=== PATIENT | female | born 1965 | race Two or more races ===

== ENCOUNTER 2018-11-24 10:59 | Emergency (ER) | payer MEDICARE, MEDICAID ==
[~2018-11-24] VITALS: Ht 154.9 cm; Wt 63.5 kg
[2018-11-24 11:38] LABS: Basophils # (auto) 0 uL; Basophils % (auto) 0.4 % (0.0-2.0); Eosinophils # (auto) 0 uL; Eosinophils % (auto) 0.3 % (0.0-7.0); Hematocrit 39.2 % (36.0-46.0); Hemoglobin 12.3 g/dL (12.2-16.2); Lymphocytes # (auto) 1.5 uL; Lymphocytes % (auto) 18.1 % (10.0-50.0); Mean Corpuscular Hemoglobin 30.5 pg (28.0-32.0); Mean Corpuscular Hgb Conc. 31.4 g/dL (32.0-36.0); Mean Corpuscular Volume 96.9 fL (80.0-100.0); Monocytes # (auto) 0.8 uL; Monocytes % (auto) 10.1 % (0.0-12.0); Neutrophils # (auto) 5.9 uL; Neutrophils % (auto) 71.1 % (37.0-80.0); Nucleated Red Blood Cells % 0.1 %; Platelet Count (auto) 190 10^3/uL (140-450); Red Blood Cells 4.05 10^6/uL (4.0-5.20); Red Cell Distribution Width 15.6 % (11.8-14.3); White Blood Cell 8.3 10^3/uL (4.4-10.8)
[2018-11-24 11:51] LABS: Albumin 3.5 g/dL (3.4-5.0); Calcium 7.6 mg/dL (8.5-10.1); Potassium 4.7 mmol/L (3.5-5.1)
[2018-11-24 11:53] LABS: BUN/Creatinine Ratio 4.9; Bilirubin, Total 1.1 mg/dL (0.2-1.0); Total Protein 7.2 g/dL (6.4-8.2)
[2018-11-24] MEDS ORDERED: ONDANSETRON HCL 4 MG/2 ML VIAL IV ONE (12:30)
[2018-11-24] MEDS ORDERED: ASPirin-EC 81 mg tab PO ONE (12:30)
[2018-11-24 15:00] VITALS: BP 156/82
== END 2018-11-24 15:45 | disposition left against medical advice (07) ==
LOC: EDBD 10:59 → ER 10:59
DX: I13.2 Hypertensive heart and chronic kidney disease with heart failure and with stage 5 chronic kidney disease, or end stage renal disease (principal); N18.6 End stage renal disease; I50.9 Heart failure, unspecified; R79.89 Other specified abnormal findings of blood chemistry; F17.210 Nicotine dependence, cigarettes, uncomplicated; Z99.2 Dependence on renal dialysis; Z88.2 Allergy status to sulfonamides; Z53.29 Procedure and treatment not carried out because of patient's decision for other reasons
CPT/HCPCS: 36415; 71045; 80053; 83735; 83880; 84484; 85025; 93005; 94761; 96374; 99284; J2405

== ENCOUNTER 2020-09-05 11:23 | Emergency (ER) | payer MEDICARE, MEDICAID ==
[~2020-09-05] VITALS: Ht 154.9 cm; Wt 64.9 kg
[2020-09-05] MEDS ORDERED: MORPHINE SULFATE INJECTION 2 MG/ML SYRG IV ONE (12:30)
[2020-09-05] MEDS ORDERED: ONDANSETRON HCL 4 MG/2 ML VIAL IV ONE (12:30)
[2020-09-05 12:55] LABS: Basophils # (auto) 0 10 ^3/uL (0-0.2); Basophils % (auto) 0.5 % (0.0-2.0); Eosinophils # (auto) 0.3 10 ^3/uL (0-0.8); Eosinophils % (auto) 4.4 % (0.0-7.0); Hematocrit 33.6 % (36.0-46.0); Hemoglobin 11.4 g/dL (12.2-16.2); Lymphocytes # (auto) 1.7 10 ^3/uL (0.4-5.4); Lymphocytes % (auto) 26.5 % (10.0-50.0); Mean Corpuscular Volume 85.3 fL (80.0-100.0); Monocytes # (auto) 0.5 10 ^3/uL (0-1.3); Monocytes % (auto) 8.3 % (0.0-12.0); Neutrophils % (auto) 60.3 % (37.0-80.0); Red Blood Cells 3.94 10^6/uL (4.0-5.20); Red Cell Distribution Width 13.7 % (11.8-14.3); White Blood Cell 6.6 10^3/uL (4.4-10.8)
[2020-09-05 13:00] LABS: Albumin 3.6 g/dL (3.4-5.0); Calcium 7.3 mg/dL (8.5-10.1); Magnesium 2.6 mg/dL (1.6-2.6); Potassium 3.6 mmol/L (3.5-5.1)
[2020-09-05 13:03] LABS: BUN/Creatinine Ratio 2.6; Bilirubin, Total 0.5 mg/dL (0.2-1.0); Total Protein 7.7 g/dL (6.4-8.2)
[2020-09-05] MEDS ORDERED: cloNIDine HCL 0.1 MG TAB PO ONE (14:30)
[2020-09-05 15:23] VITALS: BP 172/69
== END 2020-09-05 17:02 | disposition home or self-care (01) ==
LOC: ER 11:23
DX: M79.641 Pain in right hand (principal); I12.0 Hypertensive chronic kidney disease with stage 5 chronic kidney disease or end stage renal disease; N18.6 End stage renal disease; J45.909 Unspecified asthma, uncomplicated; Z99.2 Dependence on renal dialysis; F17.210 Nicotine dependence, cigarettes, uncomplicated; Z86.73 Personal history of transient ischemic attack (TIA), and cerebral infarction without residual deficits; Z88.2 Allergy status to sulfonamides
CPT/HCPCS: 36415; 73130; 80053; 83735; 84550; 85025; 85049; 85652; 93005; 93971; 96374; 96375; 99285; J2270; J2405

== ENCOUNTER 2022-10-21 16:01 | Inpatient (IN) | payer MEDICARE, MEDICAID ==
[~2022-10-21] VITALS: Ht 154.9 cm; Wt 82.0 kg
[2022-10-21 16:37] LABS: Basophils # (auto) 0.1 10 ^3/uL (0-0.2); Basophils % (auto) 1.4 % (0.0-2.0); Eosinophils # (auto) 0.4 10 ^3/uL (0-0.8); Hematocrit 33.2 % (36.0-46.0); Hemoglobin 10.6 g/dL (12.2-16.2); Lymphocytes # (auto) 0.8 10 ^3/uL (0.4-5.4); Lymphocytes % (auto) 10.8 % (10.0-50.0); Mean Corpuscular Hemoglobin 28.6 pg (28.0-32.0); Mean Corpuscular Hgb Conc. 31.9 g/dL (32.0-36.0); Mean Corpuscular Volume 89.4 fL (80.0-100.0); Monocytes # (auto) 0.5 10 ^3/uL (0-1.3); Monocytes % (auto) 7.5 % (0.0-12.0); Neutrophils # (auto) 5.3 10 ^3/uL (1.6-8.6); Neutrophils % (auto) 74.3 % (37.0-80.0); Nucleated Red Blood Cells % 0.2 %; Red Blood Cells 3.72 10^6/uL (4.0-5.20); Red Cell Distribution Width 16.5 % (11.8-14.3); White Blood Cell 7.1 10^3/uL (4.4-10.8)
[2022-10-21] MEDS ORDERED: ASPirin 325 MG TAB PO ONE (16:45)
[2022-10-21 16:54] LABS: Albumin 2.2 g/dL (3.4-5.0); Calcium 7.6 mg/dL (8.5-10.1); Potassium 3.6 mmol/L (3.5-5.1)
[2022-10-21 16:57] LABS: BUN/Creatinine Ratio 4.3 (10.0-20.0); Bilirubin, Total 0.8 mg/dL (0.2-1.0); Total Protein 5.9 g/dL (6.4-8.2)
[2022-10-21 17:04] LABS: INR 1.19 (0.9-1.15); Partial Thromboplastin Time 27.5 SEC (24.5-34.5); Prothrombin Time 12.4 sec (9.3-11.8)
[2022-10-21] MEDS ORDERED: FUROSEMIDE 20 MG/2 ML VIAL IV ONE (17:45)
[2022-10-21 17:59] VITALS: PULSE 130; RESP 22; O2SAT 100
[2022-10-21] MEDS ORDERED: ALBUTEROL SULF 2.5 MG/0.5ML(0.5%) NEB SOLN NEB PRN (19:00)
[2022-10-21] MEDS ORDERED: MORPHINE SULFATE INJ 2 MG/ml SYRG IV PRN (19:00)
[2022-10-21] MEDS ORDERED: NITROGLYCERIN 0.4 MG SL TAB SL PRN (19:00)
[2022-10-21] MEDS ORDERED: LOSA100T58 PO (19:05)
[2022-10-21] MEDS ORDERED: CARV25TA55 PO (19:05)
[2022-10-21] MEDS ORDERED: SODI325T PO (19:05)
[2022-10-21] MEDS ORDERED: FURO40TA4 PO (19:05)
[2022-10-21] MEDS ORDERED: ALBU108A5 PO (19:05)
[2022-10-21] MEDS ORDERED: GAB100C PO (19:05)
[2022-10-21] MEDS ORDERED: FLUT110A INH (19:05)
[2022-10-21] MEDS ORDERED: AMLO1TAB22 PO (19:05)
[2022-10-21] MEDS ORDERED: ATOR20TA50 PO (19:05)
[2022-10-21] MEDS ORDERED: LEVO50TA7 PO (19:05)
[2022-10-21] MEDS ORDERED: HYDR-3682 PO (19:05)
[2022-10-21 19:55] VITALS: PULSE 130; RESP 24; O2SAT 100
[2022-10-21 20:30] LABS: Cholesterol 78 mg/dL (< 200)
[2022-10-21 20:33] LABS: HDL Cholesterol 18 mg/dL (40-59); LDL Cholesterol 43 mg/dL (< 100); Triglycerides 143 mg/dL (< 150)
[2022-10-21] MEDS: ATORVASTATIN 20 MG TAB PO SCH (20:55)
[2022-10-21] MEDS: CARVEDILOL 12.5 MG TAB PO SCH (20:56)
[2022-10-21] MEDS: HEPARIN SODIUM (PORCINE) 5000 UNITS/ML 1ML VIAL SC SCH (20:59)
[2022-10-21] MEDS: METOPROLOL TARTRATE 1MG/1ML-5ML VIAL IV ONE (23:22)
[2022-10-22] VITALS (7 sets, daily range): BP systolic 115–121; BP diastolic 64–78; PULSE 110–126; RESP 16–20; TEMP 98.1–98.2; O2SAT 95–100
[2022-10-22] MEDS: METOPROLOL TARTRATE 1MG/1ML-5ML VIAL IV ONE (00:30)
[2022-10-22] MEDS: LEVOTHYROXINE SODIUM 50 MCG TAB PO SCH (06:52)
[2022-10-22 06:55] LABS: Basophils # (auto) 0 10 ^3/uL (0-0.2); Basophils % (auto) 0.6 % (0.0-2.0); Eosinophils # (auto) 0.5 10 ^3/uL (0-0.8); Eosinophils % (auto) 8.9 % (0.0-7.0); Hemoglobin 11.3 g/dL (12.2-16.2); Lymphocytes # (auto) 0.9 10 ^3/uL (0.4-5.4); Lymphocytes % (auto) 15.9 % (10.0-50.0); Mean Corpuscular Hemoglobin 28.9 pg (28.0-32.0); Mean Corpuscular Hgb Conc. 32.2 g/dL (32.0-36.0); Mean Corpuscular Volume 89.8 fL (80.0-100.0); Monocytes # (auto) 0.4 10 ^3/uL (0-1.3); Monocytes % (auto) 7.8 % (0.0-12.0); Neutrophils # (auto) 3.8 10 ^3/uL (1.6-8.6); Neutrophils % (auto) 66.8 % (37.0-80.0); Nucleated Red Blood Cells % 0.1 %; Red Cell Distribution Width 16.6 % (11.8-14.3); White Blood Cell 5.7 10^3/uL (4.4-10.8)
[2022-10-22 07:51] LABS: Potassium 3.9 mmol/L (3.5-5.1)
[2022-10-22 08:01] LABS: Albumin 2.1 g/dL (3.4-5.0); BUN/Creatinine Ratio 4.5 (10.0-20.0); Bilirubin, Total 0.6 mg/dL (0.2-1.0); Calcium 7.8 mg/dL (8.5-10.1); Total Protein 6.3 g/dL (6.4-8.2)
[2022-10-22] MEDS ORDERED: SODIUM CHL 0.9% 1000 ML BAG XX ONE (09:45)
[2022-10-22] MEDS ORDERED: METOPROLOL TARTRATE 25 MG TAB PO ONE (10:00)
[2022-10-22] MEDS ORDERED: MIDODRINE HCL 10 MG TAB PO ONE ×2 (10:00→13:30)
[2022-10-22] MEDS: GABAPENTIN 100 MG CAP PO SCH (10:27)
[2022-10-22] MEDS: amLODIPine BESYLATE 5 MG TAB PO SCH (10:27)
[2022-10-22 10:29] LABS: % Iron Saturation 55.4 % (15-50)
[2022-10-22] MEDS: CARVEDILOL 12.5 MG TAB PO SCH ×2 (10:29→22:21)
[2022-10-22] MEDS: HEPARIN SODIUM (PORCINE) 5000 UNITS/ML 1ML VIAL SC SCH ×2 (10:32→22:22)
[2022-10-22] MEDS: ASPirin 81 mg TAB PO SCH (10:33)
[2022-10-22 14:54] LABS: Body Fluid Polymorphonuclear 31 % (0-25); Body Fluid Red Blood Cells 135 CUMM (0-2000); Body Fluid White Blood Cells 50 CUMM (0-200)
[2022-10-22] MEDS: ALBUMIN 25% 100 ML IV SCH ×3 (15:00→17:07)
[2022-10-22] MEDS ORDERED: EPOETIN ALFA-EPBX 10,000 UNIT/1ML VIAL SC ONE (21:00)
[2022-10-22] MEDS: ATORVASTATIN 20 MG TAB PO SCH (22:21)
[2022-10-23] MEDS ORDERED: ALBUMIN 25% 100 ML IV ONE (05:15)
[2022-10-23] MEDS: LEVOTHYROXINE SODIUM 50 MCG TAB PO SCH (05:59)
[2022-10-23] MEDS ORDERED: SODIUM CHL 0.9% 1000 ML BAG XX ONE (07:00)
[2022-10-23 08:10] VITALS: O2SAT 100
[2022-10-23 09:00] VITALS: BP 121/71; PULSE 63; RESP 18; TEMP 97.3; O2SAT 99
[2022-10-23] MEDS: ASPirin 81 mg TAB PO SCH (09:33)
[2022-10-23] MEDS: CARVEDILOL 12.5 MG TAB PO SCH (09:39)
[2022-10-23] MEDS: amLODIPine BESYLATE 5 MG TAB PO SCH (09:40)
[2022-10-23 09:44] LABS: Hematocrit 32.1 % (36.0-46.0); Hemoglobin 10.3 g/dL (12.2-16.2)
[2022-10-23] MEDS: GABAPENTIN 100 MG CAP PO SCH (09:44)
[2022-10-23] MEDS: HEPARIN SODIUM (PORCINE) 5000 UNITS/ML 1ML VIAL SC SCH (09:52)
[2022-10-23 10:03] LABS: Potassium 3.8 mmol/L (3.5-5.1)
[2022-10-23 10:08] LABS: BUN/Creatinine Ratio 4.6 (10.0-20.0); Calcium 7.9 mg/dL (8.5-10.1)
[2022-10-23 10:10] LABS: % Iron Saturation 69.9 % (15-50)
[2022-10-23 12:19] LABS: Hepatitis A Ab IgM Negative; Hepatitis B Surface Antigen Negative (Negative)
[2022-10-23 12:20] LABS: Hepatitis B Core IgM Negative; Hepatitis C Antibody Negative (Negative)
[2022-10-23 12:51] LABS: Hepatitis B Surface Antigen Negative (Negative)
[2022-10-23 12:52] LABS: Hepatitis B Core IgM Negative
[2022-10-23 12:53] LABS: Hepatitis C Antibody Negative (Negative)
[2022-10-23 12:54] LABS: Hepatitis A Ab IgM Negative
[2022-10-23 13:00] VITALS: BP 90/47; PULSE 68; RESP 18; TEMP 97.8; O2SAT 100
[2022-10-23 14:06] LABS: Protein, Body Fluid 2.5 g/dL (.)
[2022-10-23 17:00] VITALS: BP 106/67; PULSE 123; RESP 19; TEMP 98.1; O2SAT 100
== END 2022-10-23 17:00 | disposition home or self-care (01) | DRG 302 ==
LOC: ER 16:01 → TELE 19:03 → TELE-WESTW 10-22 21:43
PROVIDERS: ADMIT Family Medicine; ATTEND Family Medicine
PROC: 0W9G3ZZ Drainage of Peritoneal Cavity, Percutaneous Approach (ICD-10-PCS; 2022-10-22)
PROC: 5A1D70Z Performance of Urinary Filtration, Intermittent, Less than 6 Hours Per Day (ICD-10-PCS; principal; 2022-10-23)
DX: I25.10 Atherosclerotic heart disease of native coronary artery without angina pectoris (principal); E43 Unspecified severe protein-calorie malnutrition; N18.6 End stage renal disease; I24.9 Acute ischemic heart disease, unspecified; R18.8 Other ascites; I13.2 Hypertensive heart and chronic kidney disease with heart failure and with stage 5 chronic kidney disease, or end stage renal disease; I48.92 Unspecified atrial flutter; I50.9 Heart failure, unspecified; E88.09 Other disorders of plasma-protein metabolism, not elsewhere classified; E66.01 Morbid (severe) obesity due to excess calories; I27.20 Pulmonary hypertension, unspecified; K74.60 Unspecified cirrhosis of liver; E78.5 Hyperlipidemia, unspecified; F17.210 Nicotine dependence, cigarettes, uncomplicated; I48.91 Unspecified atrial fibrillation; J44.9 Chronic obstructive pulmonary disease, unspecified; M06.9 Rheumatoid arthritis, unspecified; Z68.25 Body mass index [BMI] 25.0-25.9, adult; Z83.3 Family history of diabetes mellitus; Z82.49 Family history of ischemic heart disease and other diseases of the circulatory system; Z99.2 Dependence on renal dialysis; Z88.2 Allergy status to sulfonamides
CPT/HCPCS: 36415; 71045; 76700; 76942; 80048; 80053; 80061; 80074; 82728; 83540; 83550; 83605; 83880; 83986; 84443; 84484; 85014; 85018; 85025; 85379; 85610; 85730; 87040; 87205; 89051; 90935; 93005; 93306; G0378; J1642; P9047

== ENCOUNTER 2022-11-04 09:35 | Inpatient (IN) | payer MEDICARE, MEDICAID ==
[2022-11-04] VITALS (27 sets, daily range): BP systolic 81–107; BP diastolic 51–69; PULSE 139–159; RESP 18–24; TEMP 98.4–99.4; O2SAT 96–100
[~2022-11-04] VITALS: Ht 154.9 cm; Wt 80.4 kg
[~2022-11-04 09:35] MED LIST: ALBU108A5 PO; AMLO1TAB22 PO; ATOR20TA50 PO; CARV25TA55 PO; FLUT110A INH; FURO40TA4 PO; GAB100C PO; HYDR-3682 PO; LEVO50TA7 PO; LOSA100T58 PO; SODI325T PO
[2022-11-04 09:55] LABS: Base Excess 0.6 mmol/L (-2.0-2.0)
[2022-11-04] MEDS ORDERED: PIPERACILLIN-TAZO 4.5GM 100 ML IV ONE (10:00)
[2022-11-04] MEDS ORDERED: NOREPINEPHRINE 8 MG/250ML KIT 250 ML IV SCH (10:00)
[2022-11-04] MEDS ORDERED: SODIUM CHLORIDE 0.9% 1,000 ML IV ONE (10:00)
[2022-11-04 10:49] LABS: Basophils # (auto) 0.1 10 ^3/uL (0-0.2); Basophils % (auto) 0.6 % (0.0-2.0); Eosinophils # (auto) 0.1 10 ^3/uL (0-0.8); Eosinophils % (auto) 0.8 % (0.0-7.0); Hematocrit 31.5 % (36.0-46.0); Hemoglobin 10.3 g/dL (12.2-16.2); Lymphocytes # (auto) 0.9 10 ^3/uL (0.4-5.4); Lymphocytes % (auto) 8.2 % (10.0-50.0); Mean Corpuscular Hemoglobin 28.9 pg (28.0-32.0); Mean Corpuscular Hgb Conc. 32.6 g/dL (32.0-36.0); Mean Corpuscular Volume 88.5 fL (80.0-100.0); Monocytes # (auto) 0.6 10 ^3/uL (0-1.3); Monocytes % (auto) 5.5 % (0.0-12.0); Neutrophils # (auto) 8.8 10 ^3/uL (1.6-8.6); Neutrophils % (auto) 84.9 % (37.0-80.0); Red Blood Cells 3.56 10^6/uL (4.0-5.20); Red Cell Distribution Width 17.6 % (11.8-14.3); White Blood Cell 10.3 10^3/uL (4.4-10.8)
[2022-11-04 11:30] LABS: INR 1.46 (0.9-1.15)
[2022-11-04] MEDS ORDERED: VANCOMYCIN 1GM/250ML 250 ML IV ONE (11:30)
[2022-11-04] MEDS ORDERED: FUROSEMIDE 40 MG/4 ML VIAL IV ONE (11:30)
[2022-11-04] MEDS ORDERED: ALBUMIN 5% 250 ML IV ONE (11:45)
[2022-11-04 11:52] LABS: Calcium 7.4 mg/dL (8.7-10.4); Potassium 4.3 mmol/L (3.5-5.1)
[2022-11-04 11:58] LABS: Albumin 1.8 g/dL (3.4-5.0); BUN/Creatinine Ratio 6.3 (10.0-20.0); Total Protein 5.1 g/dL (6.4-8.2)
[2022-11-04 12:41] LABS: Lactic Acid w/Reflex 3.1 mmol/L (0.4-2.0)
[2022-11-04] MEDS ORDERED: VANCOMYCIN PER PHARMACY 0 MG IV SCH (14:15)
[2022-11-04] MEDS: PHENYLEPHRINE IV 250 ML IV SCH (14:15)
[2022-11-04] MEDS ORDERED: NITROGLYCERIN 0.4 MG SL TAB SL PRN (14:15)
[2022-11-04] MEDS ORDERED: ALBUTEROL SULF 2.5 MG/0.5ML(0.5%) NEB SOLN NEB PRN (14:15)
[2022-11-04] MEDS ORDERED: MORPHINE SULFATE INJ 2 MG/ml SYRG IV PRN (14:15)
[2022-11-04] MEDS: PIPERACILLIN-TAZOB 2.25GM 50 ML IV SCH (15:00)
[2022-11-04] MEDS ORDERED: VASOPRESSIN 20 UNITS in SODIUM CHL 0.9% 99 ML IV SCH (16:15)
[2022-11-04] MEDS: VASOPRESSIN 20 UNITS in SODIUM CHL 0.9% 99 ML IV SCH (16:30)
[2022-11-04] MEDS: PHENYLEPHRINE INJ 80 MG in SODIUM CHL 0.9% 242 ML IV SCH (16:30)
[2022-11-04] MEDS ORDERED: ADENOSINE 6 MG/2 ML INJ IV ONE (17:45)
[2022-11-04 19:00] LABS: Lactic Acid w/Reflex 2.6 mmol/L (0.4-2.0)
[2022-11-04] MEDS: ALBUMIN 25% 100 ML IV SCH ×3 (20:16→23:13)
[2022-11-04] MEDS ORDERED: EPOETIN ALFA-EPBX 4,000 UNIT/ML VIAL SC ONE (21:00)
[2022-11-04] MEDS: ATORVASTATIN 20 MG TAB PO SCH (22:00)
[2022-11-04] MEDS: NOREPINEPHRINE BITARTRATE 32 MG in SODIUM CHL 0.9% 218 ML IV SCH (23:03)
[2022-11-04] MEDS: HEPARIN SODIUM (PORCINE) 5000 UNITS/ML 1ML VIAL SC SCH (23:32)
[2022-11-04] MEDS ORDERED: dilTIAZem 25 MG/5 ML VIAL IV ONE (23:45)
[2022-11-05] VITALS (97 sets, daily range): BP systolic 81–113; BP diastolic 54–76; PULSE 104–158; RESP 19–33; TEMP 97.8–101.6; O2SAT 97–100
[2022-11-05 00:54] LABS: Lactic Acid w/Reflex 3.5 mmol/L (0.4-2.0)
[2022-11-05] MEDS: VASOPRESSIN 20 UNITS in SODIUM CHL 0.9% 99 ML IV SCH ×2 (02:22→14:44)
[2022-11-05] MEDS: PIPERACILLIN-TAZOB 2.25GM 50 ML IV SCH ×2 (02:22→15:00)
[2022-11-05] MEDS: PHENYLEPHRINE INJ 80 MG in SODIUM CHL 0.9% 242 ML IV SCH ×3 (02:56→19:30)
[2022-11-05 04:55] LABS: Basophils # (auto) 0 10 ^3/uL (0-0.2); Basophils % (auto) 0.4 % (0.0-2.0); Eosinophils # (auto) 0.1 10 ^3/uL (0-0.8); Eosinophils % (auto) 0.9 % (0.0-7.0); Hematocrit 32.6 % (36.0-46.0); Hemoglobin 10.3 g/dL (12.2-16.2); Lymphocytes % (auto) 7.9 % (10.0-50.0); Mean Corpuscular Hgb Conc. 31.6 g/dL (32.0-36.0); Mean Corpuscular Volume 88.5 fL (80.0-100.0); Monocytes # (auto) 0.8 10 ^3/uL (0-1.3); Monocytes % (auto) 6.7 % (0.0-12.0); Neutrophils # (auto) 10.6 10 ^3/uL (1.6-8.6); Neutrophils % (auto) 84.1 % (37.0-80.0); Nucleated Red Blood Cells % 0.1 %; Red Blood Cells 3.68 10^6/uL (4.0-5.20); Red Cell Distribution Width 17.2 % (11.8-14.3); White Blood Cell 12.6 10^3/uL (4.4-10.8)
[2022-11-05 05:45] LABS: Lactic Acid w/Reflex 3.5 mmol/L (0.4-2.0)
[2022-11-05 06:17] LABS: Alanine Aminotransferase 23 U/L (7-40); Albumin 2.8 g/dL (3.2-4.8); Alkaline Phosphatase 174 U/L (46-116); Aspartate Aminotransferase 72 U/L (13-40); BUN/Creatinine Ratio 5.9 (10.0-20.0); Blood Urea Nitrogen 48 mg/dL (9-23); Calcium 7.9 mg/dL (8.7-10.4); Chloride 99 mmol/L (98-107); Glucose 119 mg/dL (74-106); Potassium 4.9 mmol/L (3.5-5.1); Sodium 137 mmol/L (136-145)
[2022-11-05] MEDS: LEVOTHYROXINE SODIUM 50 MCG TAB PO SCH (06:17)
[2022-11-05 06:18] LABS: Bilirubin, Total 2.4 mg/dL (0.2-1.0); Total Protein 5.6 g/dL (5.7-8.2)
[2022-11-05] MEDS ORDERED: ALBUMIN 25% 100 ML IV ONE ×3 (10:45→14:30)
[2022-11-05] MEDS: HEPARIN SODIUM (PORCINE) 5000 UNITS/ML 1ML VIAL SC SCH ×2 (11:27→21:55)
[2022-11-05] MEDS: GABAPENTIN 100 MG CAP PO SCH (11:28)
[2022-11-05 13:57] LABS: Lactic Acid w/Reflex 3.9 mmol/L (0.4-2.0)
[2022-11-05] MEDS ORDERED: DIGOXIN (250MCG/ML) 2 ML AMPULE IV ONE (18:30)
[2022-11-05] MEDS: NOREPINEPHRINE BITARTRATE 32 MG in SODIUM CHL 0.9% 218 ML IV SCH (19:31)
[2022-11-05] MEDS ORDERED: VANCOMYCIN 1GM/250ML 250 ML IV ONE (20:00)
[2022-11-05] MEDS ORDERED: AMIODARONE 450mg/250ml AE 250 ML IV SCH (21:00)
[2022-11-05] MEDS ORDERED: AMIODARONE BOLUS KIT 100 ML IV ONE (21:00)
[2022-11-05] MEDS ORDERED: EPOETIN ALFA-EPBX 4,000 UNIT/ML VIAL SC ONE (21:00)
[2022-11-05] MEDS: ATORVASTATIN 20 MG TAB PO SCH (21:53)
[2022-11-05] MEDS: ACETAMINOPHEN 325 MG TAB PO PRN (22:51)
[2022-11-06] VITALS (95 sets, daily range): BP systolic 78–108; BP diastolic 51–78; PULSE 113–149; RESP 16–29; TEMP 96.3–99.9; O2SAT 89–100
[2022-11-06] MEDS: VASOPRESSIN 20 UNITS in SODIUM CHL 0.9% 99 ML IV SCH ×2 (01:51→12:58)
[2022-11-06] MEDS: PIPERACILLIN-TAZOB 2.25GM 50 ML IV SCH ×2 (02:50→14:35)
[2022-11-06] MEDS: PHENYLEPHRINE INJ 80 MG in SODIUM CHL 0.9% 242 ML IV SCH ×2 (02:52→10:15)
[2022-11-06] MEDS: AMIODARONE 450mg/250ml AE 250 ML IV SCH ×2 (02:52→17:44)
[2022-11-06 04:29] LABS: Basophils # (auto) 0 10 ^3/uL (0-0.2); Basophils % (auto) 0.2 % (0.0-2.0); Eosinophils # (auto) 0.3 10 ^3/uL (0-0.8); Eosinophils % (auto) 1.6 % (0.0-7.0); Hematocrit 33.1 % (36.0-46.0); Hemoglobin 10.4 g/dL (12.2-16.2); Lymphocytes # (auto) 1.7 10 ^3/uL (0.4-5.4); Lymphocytes % (auto) 10.5 % (10.0-50.0); Mean Corpuscular Hemoglobin 28.1 pg (28.0-32.0); Mean Corpuscular Hgb Conc. 31.3 g/dL (32.0-36.0); Mean Corpuscular Volume 89.8 fL (80.0-100.0); Monocytes % (auto) 6.2 % (0.0-12.0); Neutrophils # (auto) 13.3 10 ^3/uL (1.6-8.6); Neutrophils % (auto) 81.5 % (37.0-80.0); Nucleated Red Blood Cells % 0.1 %; Red Blood Cells 3.68 10^6/uL (4.0-5.20); Red Cell Distribution Width 17.2 % (11.8-14.3); White Blood Cell 16.3 10^3/uL (4.4-10.8)
[2022-11-06 05:02] LABS: Alanine Aminotransferase 48 U/L (7-40); Albumin 3.2 g/dL (3.2-4.8); Alkaline Phosphatase 147 U/L (46-116); Aspartate Aminotransferase 129 U/L (13-40); BUN/Creatinine Ratio 6.5 (10.0-20.0); Bilirubin, Total 3.8 mg/dL (0.2-1.0); Blood Urea Nitrogen 39 mg/dL (9-23); Calcium 8.3 mg/dL (8.7-10.4); Chloride 97 mmol/L (98-107); Glucose 137 mg/dL (74-106); Potassium 4.7 mmol/L (3.5-5.1); Sodium 134 mmol/L (136-145); Total Protein 5.6 g/dL (5.7-8.2)
[2022-11-06] MEDS: LEVOTHYROXINE SODIUM 50 MCG TAB PO SCH (06:16)
[2022-11-06] MEDS ORDERED: BUMETANIDE 2.5mg/10ml (0.25 mg/ml) INJ IV ONE (07:45)
[2022-11-06 09:44] LABS: Hepatitis B Surface Antigen Negative (Negative)
[2022-11-06 10:05] LABS: Hepatitis A Ab IgM Negative
[2022-11-06 10:06] LABS: Hepatitis B Core IgM Negative; Hepatitis C Antibody Negative (Negative)
[2022-11-06] MEDS: GABAPENTIN 100 MG CAP PO SCH ×2 (10:15→10:29)
[2022-11-06] MEDS: HEPARIN SODIUM (PORCINE) 5000 UNITS/ML 1ML VIAL SC SCH ×2 (10:16→21:38)
[2022-11-06] MEDS: NOREPINEPHRINE BITARTRATE 32 MG in SODIUM CHL 0.9% 218 ML IV SCH (10:29)
[2022-11-06] MEDS: BUMETANIDE 2.5mg/10ml (0.25 mg/ml) INJ IV SCH (17:42)
[2022-11-06] MEDS: PHENYLEPHRINE IV 250 ML IV SCH (17:43)
[2022-11-06] MEDS: ATORVASTATIN 20 MG TAB PO SCH (21:36)
[2022-11-06] MEDS: CEFEPIME 1GM/ 50ML 50 ML IV SCH (21:36)
[2022-11-06] MEDS ORDERED: CEFEPIME 2GM/50ML NS 50 ML IV SCH (22:00)
[2022-11-07] VITALS (101 sets, daily range): BP systolic 85–137; BP diastolic 31–118; PULSE 59–121; RESP 14–30; TEMP 96.5–98.7; O2SAT 87–100
[2022-11-07] MEDS: VASOPRESSIN 20 UNITS in SODIUM CHL 0.9% 99 ML IV SCH ×3 (00:05→20:59)
[2022-11-07] MEDS: NOREPINEPHRINE BITARTRATE 32 MG in SODIUM CHL 0.9% 218 ML IV SCH ×2 (01:08→18:57)
[2022-11-07] MEDS: PHENYLEPHRINE INJ 80 MG in SODIUM CHL 0.9% 242 ML IV SCH ×4 (01:10→21:50)
[2022-11-07 04:37] LABS: Alanine Aminotransferase 184 U/L (7-40); Albumin 2.9 g/dL (3.2-4.8); Alkaline Phosphatase 139 U/L (46-116); Anion Gap 15.5 (5-15); Aspartate Aminotransferase 661 U/L (13-40); BUN/Creatinine Ratio 7.8 (10.0-20.0); Bilirubin, Total 4.8 mg/dL (0.2-1.0); Blood Urea Nitrogen 48 mg/dL (9-23); Calcium 8.5 mg/dL (8.7-10.4); Carbon Dioxide 19.5 mmol/L (20-30); Chloride 98 mmol/L (98-107); Glucose 101 mg/dL (74-106); Potassium 4.9 mmol/L (3.5-5.1); Sodium 133 mmol/L (136-145); Total Protein 5.4 g/dL (5.7-8.2)
[2022-11-07 04:42] LABS: Basophils # (auto) 0 10 ^3/uL (0-0.2); Basophils % (auto) 0.3 % (0.0-2.0); Eosinophils # (auto) 0.4 10 ^3/uL (0-0.8); Eosinophils % (auto) 2.5 % (0.0-7.0); Hematocrit 32.1 % (36.0-46.0); Hemoglobin 10.2 g/dL (12.2-16.2); Lymphocytes # (auto) 1.5 10 ^3/uL (0.4-5.4); Lymphocytes % (auto) 9.1 % (10.0-50.0); Mean Corpuscular Hemoglobin 28.4 pg (28.0-32.0); Mean Corpuscular Hgb Conc. 31.7 g/dL (32.0-36.0); Mean Corpuscular Volume 89.6 fL (80.0-100.0); Monocytes % (auto) 6.5 % (0.0-12.0); Neutrophils # (auto) 13.1 10 ^3/uL (1.6-8.6); Neutrophils % (auto) 81.6 % (37.0-80.0); Nucleated Red Blood Cells % 0.1 %; Red Blood Cells 3.59 10^6/uL (4.0-5.20); Red Cell Distribution Width 17.2 % (11.8-14.3); White Blood Cell 16.1 10^3/uL (4.4-10.8)
[2022-11-07] MEDS: BUMETANIDE 2.5mg/10ml (0.25 mg/ml) INJ IV SCH ×2 (05:57→17:43)
[2022-11-07] MEDS: LEVOTHYROXINE SODIUM 50 MCG TAB PO SCH (06:00)
[2022-11-07] MEDS: ALBUMIN 25% 100 ML IV PRN (09:00)
[2022-11-07] MEDS ORDERED: ALBUMIN 25% 100 ML IV PRN (09:45)
[2022-11-07] MEDS ORDERED: ALBUMIN 25% 200 ML IV ONE (09:51)
[2022-11-07] MEDS: AMIODARONE 450mg/250ml AE 250 ML IV SCH (11:51)
[2022-11-07] MEDS ORDERED: levoFLOXacin 250MG 50 ML IV ONE (12:15)
[2022-11-07] MEDS ORDERED: B-COMPLEX W/ C & FOLIC ACID(NEPHROVITE TAB) PO ONE (12:30)
[2022-11-07] MEDS: GABAPENTIN 100 MG CAP PO SCH (14:40)
[2022-11-07] MEDS: HEPARIN SODIUM (PORCINE) 5000 UNITS/ML 1ML VIAL SC SCH ×2 (14:42→21:10)
[2022-11-07] MEDS ORDERED: IOHEXOL 300 MG/ML 100ML BOTTLE IJ ONE (15:08)
[2022-11-07 15:33] LABS: Magnesium 2.1 mg/dL (1.6-2.6)
[2022-11-07] MEDS ORDERED: VANCOMYCIN 1GM/250ML 250 ML IV ONE (16:00)
[2022-11-07] MEDS ORDERED: AMIODARONE HCL 200 MG TAB PO ONE (17:30)
[2022-11-07] MEDS: Nepro With Carbsteady ButterPecan 8oz Carton PO SCH (17:50)
[2022-11-07] MEDS ORDERED: EPOETIN ALFA-EPBX 4,000 UNIT/ML VIAL SC ONE (21:00)
[2022-11-07] MEDS: ATORVASTATIN 20 MG TAB PO SCH (21:10)
[2022-11-07] MEDS: CEFEPIME 1GM/ 50ML 50 ML IV SCH (21:10)
[2022-11-08] VITALS (106 sets, daily range): BP systolic 91–135; BP diastolic 47–82; PULSE 63–76; RESP 15–30; TEMP 97.2–98.8; O2SAT 84–100
[2022-11-08 04:53] LABS: Basophils # (auto) 0.1 10 ^3/uL (0-0.2); Basophils % (auto) 0.4 % (0.0-2.0); Eosinophils # (auto) 0.6 10 ^3/uL (0-0.8); Eosinophils % (auto) 4.2 % (0.0-7.0); Hematocrit 29.3 % (36.0-46.0); Hemoglobin 9.4 g/dL (12.2-16.2); Lymphocytes # (auto) 1.2 10 ^3/uL (0.4-5.4); Lymphocytes % (auto) 8.1 % (10.0-50.0); Mean Corpuscular Hemoglobin 28.4 pg (28.0-32.0); Mean Corpuscular Hgb Conc. 32.2 g/dL (32.0-36.0); Monocytes % (auto) 6.7 % (0.0-12.0); Neutrophils # (auto) 12.3 10 ^3/uL (1.6-8.6); Neutrophils % (auto) 80.6 % (37.0-80.0); Nucleated Red Blood Cells % 0.4 %; Red Blood Cells 3.33 10^6/uL (4.0-5.20); Red Cell Distribution Width 17.4 % (11.8-14.3); White Blood Cell 15.2 10^3/uL (4.4-10.8)
[2022-11-08 05:12] LABS: Alanine Aminotransferase 190 U/L (7-40); Albumin 3.1 g/dL (3.2-4.8); Alkaline Phosphatase 204 U/L (46-116); Anion Gap 12.3 (5-15); Aspartate Aminotransferase 521 U/L (13-40); BUN/Creatinine Ratio 7.5 (10.0-20.0); Calcium 8.6 mg/dL (8.7-10.4); Carbon Dioxide 22.7 mmol/L (20-30); Chloride 99 mmol/L (98-107); Glucose 150 mg/dL (74-106); Sodium 134 mmol/L (136-145)
[2022-11-08 05:13] LABS: Bilirubin, Total 4.4 mg/dL (0.2-1.0); Total Protein 5.6 g/dL (5.7-8.2)
[2022-11-08] MEDS: BUMETANIDE 2.5mg/10ml (0.25 mg/ml) INJ IV SCH ×2 (05:50→17:26)
[2022-11-08] MEDS: LEVOTHYROXINE SODIUM 50 MCG TAB PO SCH (06:01)
[2022-11-08 06:23] LABS: Blood Urea Nitrogen 38 mg/dL (9-23)
[2022-11-08] MEDS: PHENYLEPHRINE INJ 80 MG in SODIUM CHL 0.9% 242 ML IV SCH ×3 (06:25→22:45)
[2022-11-08] MEDS: B-COMPLEX W/ C & FOLIC ACID(NEPHROVITE TAB) PO SCH ×2 (08:45→12:10)
[2022-11-08] MEDS: VASOPRESSIN 20 UNITS in SODIUM CHL 0.9% 99 ML IV SCH ×2 (09:26→20:33)
[2022-11-08] MEDS ORDERED: levoFLOXacin 250MG 50 ML IV SCH (10:00)
[2022-11-08] MEDS: Nepro With Carbsteady ButterPecan 8oz Carton PO SCH ×3 (10:05→18:21)
[2022-11-08] MEDS: GABAPENTIN 100 MG CAP PO SCH (12:09)
[2022-11-08] MEDS: levoFLOXacin 500MG 100 ML IV SCH (12:10)
[2022-11-08] MEDS: AMIODARONE HCL 200 MG TAB PO SCH ×2 (12:10→21:50)
[2022-11-08] MEDS: HEPARIN SODIUM (PORCINE) 5000 UNITS/ML 1ML VIAL SC SCH ×2 (12:20→22:09)
[2022-11-08] MEDS: NOREPINEPHRINE BITARTRATE 32 MG in SODIUM CHL 0.9% 218 ML IV SCH (15:56)
[2022-11-08] MEDS: CEFEPIME 1GM/ 50ML 50 ML IV SCH (21:50)
[2022-11-08] MEDS: ATORVASTATIN 20 MG TAB PO SCH (21:50)
[2022-11-09] VITALS (109 sets, daily range): BP systolic 90–123; BP diastolic 45–73; PULSE 55–74; RESP 13–27; TEMP 97.8–99; O2SAT 88–100
[2022-11-09] MEDS ORDERED: VANCOMYCIN HCL 1000 MG VL IR ONE ×2 (05:00)
[2022-11-09] MEDS: LEVOTHYROXINE SODIUM 50 MCG TAB PO SCH (06:31)
[2022-11-09] MEDS: BUMETANIDE 2.5mg/10ml (0.25 mg/ml) INJ IV SCH ×2 (06:31→18:08)
[2022-11-09] MEDS: VASOPRESSIN 20 UNITS in SODIUM CHL 0.9% 99 ML IV SCH ×2 (07:40→18:09)
[2022-11-09 08:37] LABS: Anion Gap 9.8 (5-15); Carbon Dioxide 25.2 mmol/L (20-30); Chloride 100 mmol/L (98-107); Sodium 135 mmol/L (136-145)
[2022-11-09 08:38] LABS: Calcium 8.8 mg/dL (8.5-10.1)
[2022-11-09 08:43] LABS: Blood Urea Nitrogen 38 mg/dL (9-23); Glucose 119 mg/dL (74-106)
[2022-11-09 08:50] LABS: Hemoglobin 9.6 g/dL (12.2-16.2); Mean Corpuscular Hemoglobin 28.1 pg (28.0-32.0); Mean Corpuscular Hgb Conc. 31.9 g/dL (32.0-36.0); Red Blood Cells 3.41 10^6/uL (4.0-5.20)
[2022-11-09 08:56] LABS: Basophils % (manual) 0 (0.0-2.0); Blast Cells 0; Metamyelocytes % 0; Myelocytes % 0; Promyelocytes % 0; Reactive Lymphocytes 0
[2022-11-09] MEDS: PHENYLEPHRINE INJ 80 MG in SODIUM CHL 0.9% 242 ML IV SCH (09:12)
[2022-11-09] MEDS: Nepro With Carbsteady ButterPecan 8oz Carton PO SCH ×3 (09:12→18:09)
[2022-11-09] MEDS ORDERED: CLINDAMYCIN 300MG IV 50 ML IV ONE (09:15)
[2022-11-09 09:54] LABS: Band Neutrophils % (manual) 2; Eosinophils % (manual) 3 (0-7); Lymphocytes % (manual) 14 (10.0-50.0); Monocytes % (manual) 6 (0-12)
[2022-11-09 09:56] LABS: Platelet Estimate Decreased
[2022-11-09] MEDS: AMIODARONE HCL 200 MG TAB PO SCH ×2 (10:07→21:35)
[2022-11-09] MEDS: B-COMPLEX W/ C & FOLIC ACID(NEPHROVITE TAB) PO SCH (10:07)
[2022-11-09] MEDS: GABAPENTIN 100 MG CAP PO SCH (10:07)
[2022-11-09] MEDS: HEPARIN SODIUM (PORCINE) 5000 UNITS/ML 1ML VIAL SC SCH ×2 (10:11→21:36)
[2022-11-09] MEDS: NOREPINEPHRINE BITARTRATE 32 MG in SODIUM CHL 0.9% 218 ML IV SCH (14:18)
[2022-11-09] MEDS: CEFEPIME 1GM/ 50ML 50 ML IV SCH (21:35)
[2022-11-09] MEDS: ATORVASTATIN 20 MG TAB PO SCH (21:35)
[2022-11-10] VITALS (101 sets, daily range): BP systolic 71–124; BP diastolic 33–66; PULSE 52–66; RESP 11–24; TEMP 97.9–99.1; O2SAT 92–100
[2022-11-10 03:59] LABS: Hematocrit 30.4 % (36.0-46.0); Hemoglobin 9.7 g/dL (12.2-16.2); Mean Corpuscular Hemoglobin 28.3 pg (28.0-32.0); Mean Corpuscular Hgb Conc. 31.9 g/dL (32.0-36.0); Mean Corpuscular Volume 88.7 fL (80.0-100.0); Red Blood Cells 3.42 10^6/uL (4.0-5.20); Red Cell Distribution Width 17.2 % (11.8-14.3); White Blood Cell 17.4 10^3/uL (4.4-10.8)
[2022-11-10 04:13] LABS: Anion Gap 7.4 (5-15); Carbon Dioxide 27.6 mmol/L (20-30); Chloride 99 mmol/L (98-107); Potassium 3.8 mmol/L (3.5-5.1); Sodium 134 mmol/L (136-145)
[2022-11-10 04:19] LABS: BUN/Creatinine Ratio 8.4 (10.0-20.0); Blood Urea Nitrogen 43 mg/dL (9-23); Glucose 140 mg/dL (74-106)
[2022-11-10 04:27] LABS: Band Neutrophils % (manual) 0; Basophils % (manual) 0 (0.0-2.0); Blast Cells 0; Metamyelocytes % 0; Promyelocytes % 0; Reactive Lymphocytes 0
[2022-11-10] MEDS: VASOPRESSIN 20 UNITS in SODIUM CHL 0.9% 99 ML IV SCH ×2 (05:54→17:37)
[2022-11-10] MEDS: LEVOTHYROXINE SODIUM 50 MCG TAB PO SCH (06:18)
[2022-11-10] MEDS: BUMETANIDE 2.5mg/10ml (0.25 mg/ml) INJ IV SCH ×2 (06:21→18:00)
[2022-11-10] MEDS ORDERED: SODIUM CHL 0.9% 1000 ML BAG XX ONE (07:00)
[2022-11-10 09:01] LABS: Eosinophils % (manual) 4 (0-7); Lymphocytes % (manual) 9 (10.0-50.0); Monocytes % (manual) 5 (0-12); Myelocytes % 8; Platelet Estimate Decreased
[2022-11-10] MEDS: GABAPENTIN 100 MG CAP PO SCH (09:30)
[2022-11-10] MEDS: B-COMPLEX W/ C & FOLIC ACID(NEPHROVITE TAB) PO SCH (09:30)
[2022-11-10] MEDS: AMIODARONE HCL 200 MG TAB PO SCH ×2 (09:30→22:00)
[2022-11-10] MEDS: levoFLOXacin 500MG 100 ML IV SCH (09:30)
[2022-11-10] MEDS: Nepro With Carbsteady ButterPecan 8oz Carton PO SCH ×3 (09:32→18:00)
[2022-11-10] MEDS: HEPARIN SODIUM (PORCINE) 5000 UNITS/ML 1ML VIAL SC SCH ×2 (10:00→22:04)
[2022-11-10] MEDS: NOREPINEPHRINE BITARTRATE 32 MG in SODIUM CHL 0.9% 218 ML IV SCH (12:43)
[2022-11-10] MEDS ORDERED: VANCOMYCIN 1GM/250ML 250 ML IV ONE (13:38)
[2022-11-10] MEDS ORDERED: CLINDAMYCIN 300MG IV 50 ML IV ONE (13:41)
[2022-11-10] MEDS ORDERED: ceFAZolin 1GM/50ML 50 ML IV ONE (15:00)
[2022-11-10] MEDS: PHENYLEPHRINE INJ 80 MG in SODIUM CHL 0.9% 242 ML IV SCH ×2 (16:30→22:00)
[2022-11-10 17:32] LABS: INR 1.31 (0.9-1.15); Prothrombin Time 13.5 sec (9.3-11.8)
[2022-11-10] MEDS: DOPamine 3200MCG/ML 250 ML IV SCH (18:15)
[2022-11-10] MEDS: EPINEPHrine HCL INJECTION 16 MG in D5W 5% 234 ML IV SCH (18:15)
[2022-11-10] MEDS: ATORVASTATIN 20 MG TAB PO SCH (22:00)
[2022-11-11] VITALS (87 sets, daily range): BP systolic 79–164; BP diastolic 45–83; PULSE 52–67; RESP 11–27; TEMP 97.4–99.1; O2SAT 79–100
[2022-11-11] MEDS: VASOPRESSIN 20 UNITS in SODIUM CHL 0.9% 99 ML IV SCH ×2 (04:08→15:15)
[2022-11-11 04:33] LABS: Alanine Aminotransferase 84 U/L (7-40); Albumin 2.8 g/dL (3.2-4.8); Alkaline Phosphatase 348 U/L (46-116); Anion Gap 9.1 (5-15); Aspartate Aminotransferase 142 U/L (13-40); BUN/Creatinine Ratio 8.8 (10.0-20.0); Blood Urea Nitrogen 50 mg/dL (9-23); Calcium 8.7 mg/dL (8.7-10.4); Carbon Dioxide 24.9 mmol/L (20-30); Chloride 100 mmol/L (98-107); Glucose 109 mg/dL (74-106); Potassium 4.6 mmol/L (3.5-5.1); Sodium 134 mmol/L (136-145)
[2022-11-11 04:34] LABS: Bilirubin, Total 1.9 mg/dL (0.2-1.0); Total Protein 5.6 g/dL (5.7-8.2)
[2022-11-11 04:45] LABS: Hematocrit 29.5 % (36.0-46.0); Hemoglobin 9.3 g/dL (12.2-16.2); Mean Corpuscular Hemoglobin 28.1 pg (28.0-32.0); Mean Corpuscular Hgb Conc. 31.6 g/dL (32.0-36.0); Mean Corpuscular Volume 89.1 fL (80.0-100.0); Red Cell Distribution Width 17.4 % (11.8-14.3); White Blood Cell 15.4 10^3/uL (4.4-10.8)
[2022-11-11 04:50] LABS: Basophils % (manual) 0 (0.0-2.0); Blast Cells 0; Metamyelocytes % 0; Promyelocytes % 0; Reactive Lymphocytes 0
[2022-11-11] MEDS: BUMETANIDE 2.5mg/10ml (0.25 mg/ml) INJ IV SCH (06:00)
[2022-11-11] MEDS: LEVOTHYROXINE SODIUM 50 MCG TAB PO SCH (06:34)
[2022-11-11] MEDS: Nepro With Carbsteady ButterPecan 8oz Carton PO SCH ×3 (08:00→18:00)
[2022-11-11 08:26] LABS: Band Neutrophils % (manual) 1; Eosinophils % (manual) 2 (0-7); Lymphocytes % (manual) 11 (10.0-50.0); Monocytes % (manual) 8 (0-12); Myelocytes % 5; Platelet Estimate Decreased
[2022-11-11] MEDS: NOREPINEPHRINE BITARTRATE 32 MG in SODIUM CHL 0.9% 218 ML IV SCH (08:27)
[2022-11-11] MEDS: AMIODARONE HCL 200 MG TAB PO SCH ×2 (10:00→20:24)
[2022-11-11] MEDS: B-COMPLEX W/ C & FOLIC ACID(NEPHROVITE TAB) PO SCH (10:00)
[2022-11-11] MEDS: HEPARIN SODIUM (PORCINE) 5000 UNITS/ML 1ML VIAL SC SCH (10:00)
[2022-11-11] MEDS: GABAPENTIN 100 MG CAP PO SCH (10:00)
[2022-11-11] MEDS ORDERED: LIDOCAINE VISCOUS 2% 15ML UD MT ONE (12:00)
[2022-11-11] MEDS ORDERED: MIDAZOLAM HCL 2MG/2ML 2ml VIAL (1mg/ml) IV ONE (12:00)
[2022-11-11] MEDS ORDERED: fentaNYL CITRATE 100 MCG/2 ML VL IV ONE (12:00)
[2022-11-11] MEDS ORDERED: NALOXONE HCL 0.4 MG/ML VIAL ONE (12:07)
[2022-11-11] MEDS ORDERED: FLUMAZENIL 0.1 MG/ML INJ 10ML MDV IV ONE (12:07)
[2022-11-11] MEDS: PHENYLEPHRINE INJ 80 MG in SODIUM CHL 0.9% 242 ML IV SCH (13:39)
[2022-11-11] MEDS ORDERED: CLINIMIX PER PHARMACY 0 ML IV SCH (14:30)
[2022-11-11] MEDS: ceFAZolin 1GM/50ML 50 ML IV SCH (16:40)
[2022-11-11] MEDS: DOPamine 3200MCG/ML 250 ML IV SCH (18:15)
[2022-11-11] MEDS: EPINEPHrine HCL INJECTION 16 MG in D5W 5% 234 ML IV SCH (18:15)
[2022-11-11] MEDS: ATORVASTATIN 20 MG TAB PO SCH (20:23)
[2022-11-11] MEDS: AMINO ACID INFUSION IN D10W 1,000 ML IV NR (20:24)
[2022-11-11] MEDS: ACCU-CHEK COMFORT CURVE STRIP VI SCH (23:21)
[2022-11-11] MEDS: InsuLIN REG 1unit/0.01ml Soln (100units/ml) SC SCH (23:25)
[2022-11-12] VITALS (100 sets, daily range): BP systolic 77–154; BP diastolic 33–117; PULSE 50–76; RESP 12–22; TEMP 97.3–97.7; O2SAT 79–100
[2022-11-12] MEDS ORDERED: DEXTROSE (50%) 50ML SYRG IV SCH
[2022-11-12] MEDS: NOREPINEPHRINE BITARTRATE 32 MG in SODIUM CHL 0.9% 218 ML IV SCH ×2 (00:13→16:58)
[2022-11-12] MEDS: VASOPRESSIN 20 UNITS in SODIUM CHL 0.9% 99 ML IV SCH ×2 (02:22→13:29)
[2022-11-12 04:31] LABS: Alanine Aminotransferase 65 U/L (7-40); Albumin 2.8 g/dL (3.2-4.8); Alkaline Phosphatase 336 U/L (46-116); Anion Gap 9.6 (5-15); Aspartate Aminotransferase 83 U/L (13-40); BUN/Creatinine Ratio 9.1 (10.0-20.0); Blood Urea Nitrogen 58 mg/dL (9-23); Calcium 8.5 mg/dL (8.7-10.4); Carbon Dioxide 23.4 mmol/L (20-30); Chloride 99 mmol/L (98-107); Glucose 191 mg/dL (74-106); Magnesium 2.3 mg/dL (1.6-2.6); Sodium 132 mmol/L (136-145)
[2022-11-12 04:32] LABS: Bilirubin, Total 1.7 mg/dL (0.2-1.0); Phosphorus 6.7 mg/dL (2.4-5.1); Total Protein 5.9 g/dL (5.7-8.2)
[2022-11-12 04:36] LABS: Hematocrit 32.3 % (36.0-46.0); Hemoglobin 10.1 g/dL (12.2-16.2); Mean Corpuscular Hemoglobin 28.6 pg (28.0-32.0); Mean Corpuscular Hgb Conc. 31.1 g/dL (32.0-36.0); Mean Corpuscular Volume 91.9 fL (80.0-100.0); Red Blood Cells 3.52 10^6/uL (4.0-5.20); Red Cell Distribution Width 17.8 % (11.8-14.3); White Blood Cell 15.8 10^3/uL (4.4-10.8)
[2022-11-12 04:42] LABS: Basophils % (manual) 0 (0.0-2.0); Blast Cells 0; Eosinophils % (manual) 0 (0-7); Metamyelocytes % 0; Promyelocytes % 0; Reactive Lymphocytes 0
[2022-11-12] MEDS: ACCU-CHEK COMFORT CURVE STRIP VI SCH ×3 (05:16→17:11)
[2022-11-12] MEDS: InsuLIN REG 1unit/0.01ml Soln (100units/ml) SC SCH ×3 (05:19→17:14)
[2022-11-12 05:20] LABS: Band Neutrophils % (manual) 4; Lymphocytes % (manual) 14 (10.0-50.0); Monocytes % (manual) 10 (0-12); Myelocytes % 1
[2022-11-12 05:21] LABS: Platelet Estimate Decreased
[2022-11-12] MEDS: LEVOTHYROXINE SODIUM 50 MCG TAB PO SCH (05:36)
[2022-11-12] MEDS: ALBUMIN 25% 100 ML IV PRN (08:05)
[2022-11-12] MEDS ORDERED: SODIUM CHL 0.9% 1000 ML BAG XX ONE (09:15)
[2022-11-12] MEDS: B-COMPLEX W/ C & FOLIC ACID(NEPHROVITE TAB) PO SCH (10:45)
[2022-11-12] MEDS: AMIODARONE HCL 200 MG TAB PO SCH ×2 (10:45→21:13)
[2022-11-12] MEDS: ceFAZolin 1GM/50ML 50 ML IV SCH (10:45)
[2022-11-12] MEDS: Nepro With Carbsteady ButterPecan 8oz Carton PO SCH ×2 (10:48→12:02)
[2022-11-12] MEDS: PHENYLEPHRINE INJ 80 MG in SODIUM CHL 0.9% 242 ML IV SCH (16:30)
[2022-11-12] MEDS ORDERED: EPOETIN ALFA-EPBX 10,000 UNIT/1ML VIAL SC ONE (21:00)
[2022-11-12] MEDS: DOPamine 3200MCG/ML 250 ML IV SCH (21:12)
[2022-11-12] MEDS: EPINEPHrine HCL INJECTION 16 MG in D5W 5% 234 ML IV SCH (21:12)
[2022-11-12] MEDS: AMINO ACID INFUSION IN D10W 1,000 ML IV NR (21:12)
[2022-11-12] MEDS: ATORVASTATIN 20 MG TAB PO SCH (21:13)
[2022-11-13] VITALS (93 sets, daily range): BP systolic 91–118; BP diastolic 37–63; PULSE 52–61; RESP 10–22; TEMP 96.6–98; O2SAT 89–100
[2022-11-13] MEDS: ACCU-CHEK COMFORT CURVE STRIP VI SCH ×4 (00:06→18:26)
[2022-11-13] MEDS: InsuLIN REG 1unit/0.01ml Soln (100units/ml) SC SCH ×4 (00:09→18:25)
[2022-11-13] MEDS: VASOPRESSIN 20 UNITS in SODIUM CHL 0.9% 99 ML IV SCH ×3 (00:36→22:50)
[2022-11-13 04:58] LABS: Hematocrit 31.5 % (36.0-46.0); Mean Corpuscular Hemoglobin 28.8 pg (28.0-32.0); Mean Corpuscular Hgb Conc. 31.7 g/dL (32.0-36.0); Mean Corpuscular Volume 90.6 fL (80.0-100.0); Red Blood Cells 3.47 10^6/uL (4.0-5.20); Red Cell Distribution Width 17.2 % (11.8-14.3); White Blood Cell 21.1 10^3/uL (4.4-10.8)
[2022-11-13 04:59] LABS: Alanine Aminotransferase 34 U/L (7-40); Albumin 2.7 g/dL (3.2-4.8); Alkaline Phosphatase 322 U/L (46-116); Anion Gap 7.5 (5-15); Aspartate Aminotransferase 53 U/L (13-40); BUN/Creatinine Ratio 9.9 (10.0-20.0); Bilirubin, Total 1.3 mg/dL (0.2-1.0); Blood Urea Nitrogen 57 mg/dL (9-23); Calcium 8.4 mg/dL (8.7-10.4); Carbon Dioxide 27.5 mmol/L (20-30); Chloride 98 mmol/L (98-107); Glucose 167 mg/dL (74-106); Magnesium 2.1 mg/dL (1.6-2.6); Phosphorus 4.2 mg/dL (2.4-5.1); Potassium 3.8 mmol/L (3.5-5.1); Sodium 133 mmol/L (136-145); Total Protein 5.4 g/dL (5.7-8.2)
[2022-11-13 05:19] LABS: Basophils % (manual) 0 (0.0-2.0); Blast Cells 0; Myelocytes % 0; Promyelocytes % 0; Reactive Lymphocytes 0
[2022-11-13] MEDS: LEVOTHYROXINE SODIUM 50 MCG TAB PO SCH (06:22)
[2022-11-13 08:15] LABS: Band Neutrophils % (manual) 7; Eosinophils % (manual) 3 (0-7); Lymphocytes % (manual) 6 (10.0-50.0); Metamyelocytes % 3; Monocytes % (manual) 8 (0-12); Platelet Estimate Decreased
[2022-11-13] MEDS: Nepro With Carbsteady ButterPecan 8oz Carton PO SCH ×4 (10:43→18:27)
[2022-11-13] MEDS: B-COMPLEX W/ C & FOLIC ACID(NEPHROVITE TAB) PO SCH ×2 (10:52→10:59)
[2022-11-13] MEDS: AMIODARONE HCL 200 MG TAB PO SCH ×2 (10:52→10:59)
[2022-11-13] MEDS: ceFAZolin 1GM/50ML 50 ML IV SCH ×3 (10:52→15:39)
[2022-11-13] MEDS ORDERED: ERTAPENEM SOD INJ 0.5 GM in SODIUM CHL 0.9% 50 ML IV SCH (14:15)
[2022-11-13] MEDS ORDERED: LORazepam 2MG/ML-1ML VIAL IV ONE (15:30)
[2022-11-13] MEDS: ERTAPENEM SOD INJ 0.5 GM in SODIUM CHL 0.9% 50 ML IV SCH (16:00)
[2022-11-13] MEDS: DOPamine 3200MCG/ML 250 ML IV SCH (18:15)
[2022-11-13] MEDS: EPINEPHrine HCL INJECTION 16 MG in D5W 5% 234 ML IV SCH (18:15)
[2022-11-13] MEDS: AMINO ACID INFUSION IN D10W 1,000 ML IV NR (20:22)
[2022-11-14] VITALS (99 sets, daily range): BP systolic 86–122; BP diastolic 35–69; PULSE 48–76; RESP 10–27; TEMP 96.3–98.6; O2SAT 87–100
[2022-11-14] MEDS: ACCU-CHEK COMFORT CURVE STRIP VI SCH ×4 (00:02→16:57)
[2022-11-14 04:29] LABS: Hematocrit 31.6 % (36.0-46.0); Hemoglobin 10.1 g/dL (12.2-16.2); Mean Corpuscular Volume 90.6 fL (80.0-100.0); Red Blood Cells 3.49 10^6/uL (4.0-5.20); Red Cell Distribution Width 17.4 % (11.8-14.3); White Blood Cell 21.9 10^3/uL (4.4-10.8)
[2022-11-14 04:38] LABS: Anion Gap 8.6 (5-15); Carbon Dioxide 26.4 mmol/L (20-30)
[2022-11-14] MEDS: NOREPINEPHRINE BITARTRATE 32 MG in SODIUM CHL 0.9% 218 ML IV SCH ×2 (04:38→21:30)
[2022-11-14 04:39] LABS: Calcium 8.8 mg/dL (8.7-10.4)
[2022-11-14 04:44] LABS: Albumin 2.6 g/dL (3.2-4.8); BUN/Creatinine Ratio 11.4 (10.0-20.0); Magnesium 2.2 mg/dL (1.6-2.6)
[2022-11-14 04:46] LABS: Phosphorus 4.4 mg/dL (2.4-5.1)
[2022-11-14 04:54] LABS: Basophils % (manual) 0 (0.0-2.0); Blast Cells 0; Myelocytes % 0; Promyelocytes % 0; Reactive Lymphocytes 0
[2022-11-14] MEDS: InsuLIN REG 1unit/0.01ml Soln (100units/ml) SC SCH ×4 (06:00→17:12)
[2022-11-14] MEDS: LEVOTHYROXINE SODIUM 50 MCG TAB PO SCH (06:30)
[2022-11-14] MEDS: Nepro With Carbsteady ButterPecan 8oz Carton PO SCH ×3 (08:00→16:57)
[2022-11-14] MEDS: VASOPRESSIN 20 UNITS in SODIUM CHL 0.9% 99 ML IV SCH ×2 (08:17→20:42)
[2022-11-14] MEDS: AMIODARONE HCL 200 MG TAB PO SCH (08:17)
[2022-11-14 08:52] LABS: Band Neutrophils % (manual) 13; Eosinophils % (manual) 5 (0-7); Lymphocytes % (manual) 8 (10.0-50.0); Metamyelocytes % 3; Monocytes % (manual) 14 (0-12); Platelet Estimate Decreased
[2022-11-14] MEDS ORDERED: SODIUM CHL 0.9% 1000 ML BAG XX ONE (11:00)
[2022-11-14] MEDS ORDERED: ALBUMIN 25% 200 ML IV ONE (11:08)
[2022-11-14] MEDS: ALBUMIN 25% 100 ML IV PRN (12:09)
[2022-11-14] MEDS ORDERED: MORPHINE SULFATE INJ 2 MG/ml SYRG ONE (13:07)
[2022-11-14] MEDS: ACETAMINOPHEN 325 MG TAB PO PRN (13:19)
[2022-11-14] MEDS: ceFAZolin 1GM/50ML 50 ML IV SCH (15:06)
[2022-11-14] MEDS: ERTAPENEM SOD INJ 0.5 GM in SODIUM CHL 0.9% 50 ML IV SCH (15:55)
[2022-11-14] MEDS: EPINEPHrine HCL INJECTION 16 MG in D5W 5% 234 ML IV SCH (16:57)
[2022-11-14] MEDS: DOPamine 3200MCG/ML 250 ML IV SCH (16:57)
[2022-11-14] MEDS: AMINO ACID INFUSION IN D10W 1,000 ML IV NR (19:58)
[2022-11-14] MEDS ORDERED: EPOETIN ALFA-EPBX 10,000 UNIT/1ML VIAL SC ONE (21:00)
[2022-11-15] VITALS (95 sets, daily range): BP systolic 81–115; BP diastolic 34–61; PULSE 58–98; RESP 11–22; TEMP 97.6–98.1; O2SAT 89–99
[2022-11-15] MEDS: ACCU-CHEK COMFORT CURVE STRIP VI SCH ×2 (00:02→06:00)
[2022-11-15 04:02] LABS: Hematocrit 29.2 % (36.0-46.0); Hemoglobin 9.3 g/dL (12.2-16.2); Mean Corpuscular Hgb Conc. 31.7 g/dL (32.0-36.0); Mean Corpuscular Volume 91.2 fL (80.0-100.0); Red Blood Cells 3.21 10^6/uL (4.0-5.20); Red Cell Distribution Width 17.2 % (11.8-14.3); White Blood Cell 21.2 10^3/uL (4.4-10.8)
[2022-11-15 04:11] LABS: Band Neutrophils % (manual) 0; Basophils % (manual) 0 (0.0-2.0); Blast Cells 0; Metamyelocytes % 0; Myelocytes % 0; Promyelocytes % 0; Reactive Lymphocytes 0
[2022-11-15 05:23] LABS: Chloride 98 mmol/L (98-107); Potassium 4.1 mmol/L (3.5-5.1); Sodium 134 mmol/L (136-145)
[2022-11-15 05:24] LABS: Anion Gap 10.3 (5-15); Calcium 9.1 mg/dL (8.5-10.1); Carbon Dioxide 25.7 mmol/L (20-30)
[2022-11-15 05:29] LABS: GFR African American 11 mL/min; GFR Non-African American 9 mL/min; Glucose 123 mg/dL (74-106)
[2022-11-15 05:30] LABS: BUN/Creatinine Ratio 11.5 (10.0-20.0); Magnesium 2.1 mg/dL (1.6-2.6)
[2022-11-15 05:32] LABS: Phosphorus 3.6 mg/dL (2.4-5.1)
[2022-11-15 05:48] LABS: Blood Urea Nitrogen 60 mg/dL (9-23)
[2022-11-15] MEDS: InsuLIN REG 1unit/0.01ml Soln (100units/ml) SC SCH ×2 (06:00)
[2022-11-15] MEDS: LEVOTHYROXINE SODIUM 50 MCG TAB PO SCH (06:30)
[2022-11-15] MEDS: VASOPRESSIN 20 UNITS in SODIUM CHL 0.9% 99 ML IV SCH ×2 (07:52→10:29)
[2022-11-15] MEDS: Nepro With Carbsteady ButterPecan 8oz Carton PO SCH ×3 (08:07→17:13)
[2022-11-15] MEDS: B-COMPLEX W/ C & FOLIC ACID(NEPHROVITE TAB) PO SCH (08:08)
[2022-11-15 08:19] LABS: Eosinophils % (manual) 1 (0-7); Lymphocytes % (manual) 8 (10.0-50.0); Monocytes % (manual) 8 (0-12)
[2022-11-15 08:20] LABS: Toxic Granulation Slight
[2022-11-15 08:23] LABS: Platelet Estimate Decreased
[2022-11-15] MEDS: DOPamine 3200MCG/ML 250 ML IV SCH (10:28)
[2022-11-15] MEDS: EPINEPHrine HCL INJECTION 16 MG in D5W 5% 234 ML IV SCH (10:29)
[2022-11-15] MEDS: MIDODRINE HCL 10 MG TAB PO SCH ×2 (11:10→17:13)
[2022-11-15] MEDS: ceFAZolin 1GM/50ML 50 ML IV SCH (15:00)
[2022-11-15] MEDS: ERTAPENEM SOD INJ 0.5 GM in SODIUM CHL 0.9% 50 ML IV SCH (16:03)
[2022-11-15] MEDS ORDERED: AMINO ACID INFUSION IN D10W 1,000 ML IV NR (20:00)
[2022-11-16] VITALS (98 sets, daily range): BP systolic 78–116; BP diastolic 38–61; PULSE 51–123; RESP 11–20; TEMP 96.8–97.9; O2SAT 90–100
[2022-11-16 04:34] LABS: Hematocrit 28.6 % (36.0-46.0); Hemoglobin 9.1 g/dL (12.2-16.2); Mean Corpuscular Hemoglobin 29.4 pg (28.0-32.0); Red Blood Cells 3.11 10^6/uL (4.0-5.20); Red Cell Distribution Width 17.8 % (11.8-14.3)
[2022-11-16 04:47] LABS: Alanine Aminotransferase 14 U/L (7-40); Alkaline Phosphatase 398 U/L (46-116); Anion Gap 5.6 (5-15); Aspartate Aminotransferase 102 U/L (13-40); BUN/Creatinine Ratio 12.9 (10.0-20.0); Calcium 9.5 mg/dL (8.7-10.4); Carbon Dioxide 27.4 mmol/L (20-30); Chloride 97 mmol/L (98-107); Glucose 110 mg/dL (74-106); Magnesium 2.3 mg/dL (1.6-2.6); Phosphorus 5.2 mg/dL (2.4-5.1); Potassium 4.4 mmol/L (3.5-5.1); Sodium 130 mmol/L (136-145)
[2022-11-16 05:15] LABS: Band Neutrophils % (manual) 0; Basophils % (manual) 0 (0.0-2.0); Blast Cells 0; Promyelocytes % 0; Reactive Lymphocytes 0
[2022-11-16 05:20] LABS: Blood Urea Nitrogen 77 mg/dL (9-23)
[2022-11-16] MEDS: MIDODRINE HCL 10 MG TAB PO SCH ×3 (06:10→18:21)
[2022-11-16] MEDS: LEVOTHYROXINE SODIUM 50 MCG TAB PO SCH (06:10)
[2022-11-16] MEDS: VASOPRESSIN 20 UNITS in SODIUM CHL 0.9% 99 ML IV SCH ×2 (06:25→17:32)
[2022-11-16] MEDS: Nepro With Carbsteady ButterPecan 8oz Carton PO SCH ×3 (08:00→18:21)
[2022-11-16 09:13] LABS: Eosinophils % (manual) 3 (0-7); Lymphocytes % (manual) 9 (10.0-50.0); Metamyelocytes % 1; Monocytes % (manual) 9 (0-12); Myelocytes % 1
[2022-11-16 09:14] LABS: Platelet Estimate Decreased; Toxic Granulation Slight
[2022-11-16] MEDS ORDERED: ALBUMIN 25% 100 ML IV ONE (09:15)
[2022-11-16] MEDS ORDERED: SODIUM CHL 0.9% 1000 ML BAG XX ONE (09:15)
[2022-11-16] MEDS: B-COMPLEX W/ C & FOLIC ACID(NEPHROVITE TAB) PO SCH (09:30)
[2022-11-16] MEDS: ceFAZolin 1GM/50ML 50 ML IV SCH (14:11)
[2022-11-16] MEDS: ERTAPENEM SOD INJ 0.5 GM in SODIUM CHL 0.9% 50 ML IV SCH (16:02)
[2022-11-16] MEDS: DOPamine 3200MCG/ML 250 ML IV SCH (18:15)
[2022-11-16] MEDS: EPINEPHrine HCL INJECTION 16 MG in D5W 5% 234 ML IV SCH (18:15)
[2022-11-16] MEDS ORDERED: EPOETIN ALFA-EPBX 10,000 UNIT/1ML VIAL SC ONE (21:00)
[2022-11-16] MEDS: NOREPINEPHRINE BITARTRATE 32 MG in SODIUM CHL 0.9% 218 ML IV SCH (21:30)
[2022-11-17] VITALS (99 sets, daily range): BP systolic 82–125; BP diastolic 36–64; PULSE 54–73; RESP 11–20; TEMP 97–97.8; O2SAT 90–100
[2022-11-17 03:57] LABS: Hematocrit 28.2 % (36.0-46.0); Hemoglobin 9.2 g/dL (12.2-16.2); Mean Corpuscular Hgb Conc. 32.6 g/dL (32.0-36.0); Mean Corpuscular Volume 91.9 fL (80.0-100.0); Red Blood Cells 3.07 10^6/uL (4.0-5.20); Red Cell Distribution Width 18.1 % (11.8-14.3)
[2022-11-17 04:07] LABS: Chloride 96 mmol/L (98-107); Potassium 4.9 mmol/L (3.5-5.1); Sodium 132 mmol/L (136-145)
[2022-11-17 04:08] LABS: Anion Gap 10.1 (5-15); Carbon Dioxide 25.9 mmol/L (20-30)
[2022-11-17 04:09] LABS: Calcium 9.2 mg/dL (8.7-10.4)
[2022-11-17 04:13] LABS: BUN/Creatinine Ratio 13.3 (10.0-20.0); Glucose 113 mg/dL (74-106)
[2022-11-17 04:15] LABS: Basophils % (manual) 0 (0.0-2.0); Blast Cells 0; Metamyelocytes % 0; Promyelocytes % 0; Reactive Lymphocytes 0
[2022-11-17] MEDS: VASOPRESSIN 20 UNITS in SODIUM CHL 0.9% 99 ML IV SCH ×2 (04:39→15:46)
[2022-11-17 04:50] LABS: Blood Urea Nitrogen 86 mg/dL (9-23)
[2022-11-17] MEDS ORDERED: NOREPINEPHRINE 8 MG/250ML KIT 250 ML IV ONE (06:29)
[2022-11-17] MEDS ORDERED: NOREPINEPHRINE BITARTRATE 6 ML IV ONE (06:29)
[2022-11-17] MEDS: LEVOTHYROXINE SODIUM 50 MCG TAB PO SCH (06:41)
[2022-11-17] MEDS: MIDODRINE HCL 10 MG TAB PO SCH ×3 (06:41→17:24)
[2022-11-17] MEDS: NOREPINEPHRINE BITARTRATE 32 MG in SODIUM CHL 0.9% 218 ML IV SCH ×2 (06:41→21:05)
[2022-11-17 06:54] LABS: Eosinophils % (manual) 4 (0-7); Monocytes % (manual) 11 (0-12); Myelocytes % 1
[2022-11-17 06:55] LABS: Anisocytosis Slight; Band Neutrophils % (manual) 16; Large Platelets FEW; Lymphocytes % (manual) 6 (10.0-50.0); Platelet Estimate Adequate; Stomatocytes Few
[2022-11-17] MEDS ORDERED: SODIUM CHL 0.9% 1000 ML BAG XX ONE (07:00)
[2022-11-17] MEDS: B-COMPLEX W/ C & FOLIC ACID(NEPHROVITE TAB) PO SCH (08:54)
[2022-11-17] MEDS: Nepro With Carbsteady ButterPecan 8oz Carton PO SCH ×3 (08:54→17:24)
[2022-11-17] MEDS: ceFAZolin 1GM/50ML 50 ML IV SCH (14:10)
[2022-11-17] MEDS ORDERED: IOHEXOL 350 MG/ML 100ML IJ ONE (14:17)
[2022-11-17] MEDS: ERTAPENEM SOD INJ 0.5 GM in SODIUM CHL 0.9% 50 ML IV SCH (15:58)
[2022-11-17] MEDS: EPINEPHrine HCL INJECTION 16 MG in D5W 5% 234 ML IV SCH (18:15)
[2022-11-17] MEDS: DOPamine 3200MCG/ML 250 ML IV SCH (18:15)
[2022-11-17] MEDS ORDERED: EPOETIN ALFA-EPBX 10,000 UNIT/1ML VIAL SC ONE (21:00)
[2022-11-18] VITALS (42 sets, daily range): BP systolic 90–113; BP diastolic 36–58; PULSE 58–67; RESP 1–20; TEMP 97.2–98.2; O2SAT 91–100
[2022-11-18] MEDS: VASOPRESSIN 20 UNITS in SODIUM CHL 0.9% 99 ML IV SCH (02:53)
[2022-11-18 04:16] LABS: Hematocrit 27.1 % (36.0-46.0); Hemoglobin 8.7 g/dL (12.2-16.2); Mean Corpuscular Hgb Conc. 32.1 g/dL (32.0-36.0); Mean Corpuscular Volume 93.3 fL (80.0-100.0); Red Blood Cells 2.91 10^6/uL (4.0-5.20); White Blood Cell 14.2 10^3/uL (4.4-10.8)
[2022-11-18 04:32] LABS: Albumin 2.9 g/dL (3.2-4.8); Alkaline Phosphatase 470 U/L (46-116); Anion Gap 6.9 (5-15); Aspartate Aminotransferase 73 U/L (13-40); Calcium 8.8 mg/dL (8.7-10.4); Carbon Dioxide 29.1 mmol/L (20-30); Chloride 98 mmol/L (98-107); Glucose 123 mg/dL (74-106); Potassium 4.4 mmol/L (3.5-5.1); Sodium 134 mmol/L (136-145)
[2022-11-18 04:33] LABS: Bilirubin, Total 0.7 mg/dL (0.2-1.0); Total Protein 5.8 g/dL (5.7-8.2)
[2022-11-18 05:10] LABS: Red Cell Distribution Width 25.8 % (11.8-14.3)
[2022-11-18 05:12] LABS: Basophils % (manual) 0 (0.0-2.0); Metamyelocytes % 0; Myelocytes % 0; Promyelocytes % 0; Reactive Lymphocytes 0
[2022-11-18 05:32] LABS: Alanine Aminotransferase < 9 U/L (7-40); Blood Urea Nitrogen 63 mg/dL (9-23)
[2022-11-18] MEDS: MIDODRINE HCL 10 MG TAB PO SCH ×3 (06:11→18:27)
[2022-11-18] MEDS: LEVOTHYROXINE SODIUM 50 MCG TAB PO SCH (06:11)
[2022-11-18 08:37] LABS: Band Neutrophils % (manual) 1; Blast Cells 1; Eosinophils % (manual) 5 (0-7); Lymphocytes % (manual) 9 (10.0-50.0); Monocytes % (manual) 9 (0-12)
[2022-11-18 08:38] LABS: Anisocytosis Slight; Hypochromia Slight; Platelet Estimate Adequate
[2022-11-18 08:39] LABS: Macrocytosis Slight; Stomatocytes Few
[2022-11-18] MEDS: Nepro With Carbsteady ButterPecan 8oz Carton PO SCH ×3 (08:41→18:00)
[2022-11-18 08:51] LABS: INR 1.18 (0.9-1.15); Partial Thromboplastin Time 30.5 SEC (24.5-34.5); Prothrombin Time 12.3 sec (9.3-11.8)
[2022-11-18] MEDS: B-COMPLEX W/ C & FOLIC ACID(NEPHROVITE TAB) PO SCH (09:13)
[2022-11-18] MEDS: ceFAZolin 1GM/50ML 50 ML IV SCH (15:20)
[2022-11-18] MEDS: ERTAPENEM SOD INJ 0.5 GM in SODIUM CHL 0.9% 50 ML IV SCH (16:11)
[2022-11-18] MEDS: EPINEPHrine HCL INJECTION 16 MG in D5W 5% 234 ML IV SCH (18:15)
[2022-11-18 20:57] LABS: Body Fluid Polymorphonuclear 85 % (0-25); Body Fluid Red Blood Cells 170 CUMM (0-2000); Body Fluid White Blood Cells 370 CUMM (0-200)
[2022-11-19] VITALS (12 sets, daily range): BP systolic 89–109; BP diastolic 44–58; PULSE 60–99; RESP 12–18; TEMP 97.5–98.6; O2SAT 92–99
[2022-11-19] MEDS: MIDODRINE HCL 10 MG TAB PO SCH ×3 (05:46→18:27)
[2022-11-19] MEDS: LEVOTHYROXINE SODIUM 50 MCG TAB PO SCH (05:46)
[2022-11-19 06:55] LABS: Hematocrit 26.6 % (36.0-46.0); Hemoglobin 8.5 g/dL (12.2-16.2); Mean Corpuscular Hemoglobin 29.6 pg (28.0-32.0); Mean Corpuscular Hgb Conc. 31.9 g/dL (32.0-36.0); Mean Corpuscular Volume 92.7 fL (80.0-100.0); Red Blood Cells 2.87 10^6/uL (4.0-5.20); White Blood Cell 11.5 10^3/uL (4.4-10.8)
[2022-11-19] MEDS ORDERED: SODIUM CHL 0.9% 1000 ML BAG XX ONE (07:00)
[2022-11-19 07:01] LABS: Red Cell Distribution Width 24.6 % (11.8-14.3)
[2022-11-19 07:02] LABS: Basophils % (manual) 0 (0.0-2.0); Blast Cells 0; Metamyelocytes % 0; Myelocytes % 0; Promyelocytes % 0; Reactive Lymphocytes 0
[2022-11-19 07:21] LABS: Band Neutrophils % (manual) 2; Eosinophils % (manual) 6 (0-7); Lymphocytes % (manual) 5 (10.0-50.0); Monocytes % (manual) 13 (0-12); Platelet Estimate Adequate
[2022-11-19 07:26] LABS: Anion Gap 9.3 (5-15); Carbon Dioxide 26.7 mmol/L (20-30); Chloride 96 mmol/L (98-107); Sodium 132 mmol/L (136-145)
[2022-11-19 07:28] LABS: Calcium 9.1 mg/dL (8.5-10.1)
[2022-11-19 07:32] LABS: Glucose 95 mg/dL (74-106)
[2022-11-19 07:33] LABS: BUN/Creatinine Ratio 13.8 (10.0-20.0); Blood Urea Nitrogen 76 mg/dL (9-23)
[2022-11-19] MEDS: Nepro With Carbsteady ButterPecan 8oz Carton PO SCH ×3 (08:00→18:22)
[2022-11-19] MEDS: B-COMPLEX W/ C & FOLIC ACID(NEPHROVITE TAB) PO SCH (10:00)
[2022-11-19] MEDS ORDERED: fentaNYL CITRATE 100 MCG/2 ML VL ONE (14:34)
[2022-11-19] MEDS ORDERED: MIDAZOLAM HCL 2MG/2ML 2ml VIAL (1mg/ml) ONE (14:34)
[2022-11-19] MEDS ORDERED: IODIXANOL 320MG/ML 100ML BTL IV ONE ×2 (14:38→15:58)
[2022-11-19] MEDS ORDERED: LIDOCAINE 2%HCL (LOCAL ANESTH.) INJ 20ML MDV ONE (14:38)
[2022-11-19] MEDS: ceFAZolin 1GM/50ML 50 ML IV SCH (15:00)
[2022-11-19] MEDS: ERTAPENEM SOD INJ 0.5 GM in SODIUM CHL 0.9% 50 ML IV SCH (16:00)
[2022-11-19] MEDS ORDERED: EPOETIN ALFA-EPBX 10,000 UNIT/1ML VIAL SC ONE (21:00)
[2022-11-20] VITALS (7 sets, daily range): BP systolic 94–123; BP diastolic 29–57; PULSE 63–71; RESP 14–20; TEMP 89.1–98.7; O2SAT 85–100
[2022-11-20] MEDS: MIDODRINE HCL 10 MG TAB PO SCH ×3 (06:24→18:21)
[2022-11-20] MEDS: LEVOTHYROXINE SODIUM 50 MCG TAB PO SCH (06:24)
[2022-11-20 07:42] LABS: Basophils # (auto) 0.1 10 ^3/uL (0-0.2); Basophils % (auto) 0.9 % (0.0-2.0); Eosinophils # (auto) 0.5 10 ^3/uL (0-0.8); Eosinophils % (auto) 4.8 % (0.0-7.0); Hematocrit 26.4 % (36.0-46.0); Hemoglobin 8.5 g/dL (12.2-16.2); Lymphocytes # (auto) 0.8 10 ^3/uL (0.4-5.4); Lymphocytes % (auto) 7.8 % (10.0-50.0); Mean Corpuscular Hemoglobin 30.2 pg (28.0-32.0); Mean Corpuscular Hgb Conc. 32.1 g/dL (32.0-36.0); Mean Corpuscular Volume 94.1 fL (80.0-100.0); Monocytes # (auto) 1.2 10 ^3/uL (0-1.3); Monocytes % (auto) 11.6 % (0.0-12.0); Neutrophils # (auto) 7.6 10 ^3/uL (1.6-8.6); Neutrophils % (auto) 74.9 % (37.0-80.0); Nucleated Red Blood Cells % 0.2 %; White Blood Cell 10.1 10^3/uL (4.4-10.8)
[2022-11-20 07:47] LABS: Red Cell Distribution Width 27.3 % (11.8-14.3)
[2022-11-20 07:51] LABS: Chloride 97 mmol/L (98-107); Potassium 4.5 mmol/L (3.5-5.1); Sodium 135 mmol/L (136-145)
[2022-11-20 07:52] LABS: Anion Gap 8.4 (5-15); Calcium 8.9 mg/dL (8.5-10.1); Carbon Dioxide 29.6 mmol/L (20-30)
[2022-11-20 07:57] LABS: BUN/Creatinine Ratio 12.5 (10.0-20.0); Glucose 85 mg/dL (74-106)
[2022-11-20] MEDS: Nepro With Carbsteady ButterPecan 8oz Carton PO SCH ×3 (08:00→18:21)
[2022-11-20 08:01] LABS: Blood Urea Nitrogen 53 mg/dL (9-23)
[2022-11-20] MEDS: B-COMPLEX W/ C & FOLIC ACID(NEPHROVITE TAB) PO SCH (10:24)
[2022-11-20 10:40] LABS: Anisocytosis Moderate; Platelet Estimate Adequate
[2022-11-20] MEDS: ceFAZolin 1GM/50ML 50 ML IV SCH (15:55)
[2022-11-20] MEDS: ERTAPENEM SOD INJ 0.5 GM in SODIUM CHL 0.9% 50 ML IV SCH (16:13)
[2022-11-21] VITALS (8 sets, daily range): BP systolic 106–124; BP diastolic 46–56; PULSE 66–73; RESP 14–22; TEMP 97.5–98.8; O2SAT 90–100
[2022-11-21 06:14] LABS: Basophils # (auto) 0.1 10 ^3/uL (0-0.2); Hemoglobin 8.4 g/dL (12.2-16.2); Neutrophils # (auto) 7.1 10 ^3/uL (1.6-8.6); Nucleated Red Blood Cells % 0.1 %
[2022-11-21] MEDS: LEVOTHYROXINE SODIUM 50 MCG TAB PO SCH (06:14)
[2022-11-21] MEDS: MIDODRINE HCL 10 MG TAB PO SCH ×3 (06:14→18:32)
[2022-11-21 06:18] LABS: Basophils % (auto) 0.7 % (0.0-2.0); Eosinophils # (auto) 0.7 10 ^3/uL (0-0.8); Eosinophils % (auto) 6.9 % (0.0-7.0); Hematocrit 26.9 % (36.0-46.0); Lymphocytes # (auto) 0.9 10 ^3/uL (0.4-5.4); Lymphocytes % (auto) 8.8 % (10.0-50.0); Mean Corpuscular Hemoglobin 29.6 pg (28.0-32.0); Mean Corpuscular Hgb Conc. 31.3 g/dL (32.0-36.0); Mean Corpuscular Volume 94.6 fL (80.0-100.0); Monocytes # (auto) 1.1 10 ^3/uL (0-1.3); Monocytes % (auto) 10.8 % (0.0-12.0); Neutrophils % (auto) 72.8 % (37.0-80.0); Red Blood Cells 2.84 10^6/uL (4.0-5.20); White Blood Cell 9.8 10^3/uL (4.4-10.8)
[2022-11-21 06:28] LABS: Albumin 3.3 g/dL (3.2-4.8); Alkaline Phosphatase 492 U/L (46-116); Aspartate Aminotransferase 50 U/L (13-40); BUN/Creatinine Ratio 12.8 (10.0-20.0); Bilirubin, Total 0.7 mg/dL (0.2-1.0); Calcium 8.8 mg/dL (8.7-10.4); Chloride 97 mmol/L (98-107); Glucose 94 mg/dL (74-106); Potassium 4.8 mmol/L (3.5-5.1); Sodium 134 mmol/L (136-145); Total Protein 6.7 g/dL (5.7-8.2)
[2022-11-21 06:30] LABS: Red Cell Distribution Width 26.8 % (11.8-14.3)
[2022-11-21 06:31] LABS: Alanine Aminotransferase < 9 U/L (7-40); Blood Urea Nitrogen 64 mg/dL (9-23)
[2022-11-21] MEDS ORDERED: SODIUM CHL 0.9% 1000 ML BAG XX ONE (07:00)
[2022-11-21] MEDS: Nepro With Carbsteady ButterPecan 8oz Carton PO SCH ×3 (08:10→18:00)
[2022-11-21] MEDS: B-COMPLEX W/ C & FOLIC ACID(NEPHROVITE TAB) PO SCH (10:18)
[2022-11-21 12:08] LABS: Anisocytosis Moderate; Platelet Estimate Adequate
[2022-11-21] MEDS: ALBUMIN 25% 100 ML IV PRN (14:29)
[2022-11-21] MEDS: ceFAZolin 1GM/50ML 50 ML IV SCH (14:30)
[2022-11-21] MEDS: ERTAPENEM SOD INJ 0.5 GM in SODIUM CHL 0.9% 50 ML IV SCH (16:00)
[2022-11-21] MEDS ORDERED: EPOETIN ALFA-EPBX 10,000 UNIT/1ML VIAL SC ONE (21:00)
[2022-11-22] VITALS (7 sets, daily range): BP systolic 94–122; BP diastolic 33–63; PULSE 61–72; RESP 17–20; TEMP 97.5–98.9; O2SAT 91–100
[2022-11-22] MEDS: MIDODRINE HCL 10 MG TAB PO SCH ×3 (06:08→18:07)
[2022-11-22] MEDS: LEVOTHYROXINE SODIUM 50 MCG TAB PO SCH (06:09)
[2022-11-22] MEDS: Nepro With Carbsteady ButterPecan 8oz Carton PO SCH ×3 (07:35→17:52)
[2022-11-22] MEDS: B-COMPLEX W/ C & FOLIC ACID(NEPHROVITE TAB) PO SCH (09:36)
[2022-11-22] MEDS: ceFAZolin 1GM/50ML 50 ML IV SCH (15:11)
[2022-11-22] MEDS: ERTAPENEM SOD INJ 0.5 GM in SODIUM CHL 0.9% 50 ML IV SCH (16:00)
[2022-11-23] VITALS (11 sets, daily range): BP systolic 88–132; BP diastolic 38–50; PULSE 59–68; RESP 16–20; TEMP 97.4–97.7; O2SAT 95–100
[2022-11-23 05:28] LABS: Basophils # (auto) 0.1 10 ^3/uL (0-0.2); Monocytes # (auto) 0.9 10 ^3/uL (0-1.3)
[2022-11-23 05:30] LABS: Basophils % (auto) 1.1 % (0.0-2.0); Eosinophils % (auto) 12.6 % (0.0-7.0); Hematocrit 27.9 % (36.0-46.0); Hemoglobin 8.7 g/dL (12.2-16.2); Lymphocytes # (auto) 0.8 10 ^3/uL (0.4-5.4); Mean Corpuscular Hemoglobin 30.1 pg (28.0-32.0); Mean Corpuscular Hgb Conc. 31.2 g/dL (32.0-36.0); Mean Corpuscular Volume 96.5 fL (80.0-100.0); Monocytes % (auto) 11.1 % (0.0-12.0); Neutrophils # (auto) 5.4 10 ^3/uL (1.6-8.6); Neutrophils % (auto) 65.2 % (37.0-80.0); Nucleated Red Blood Cells % 0.1 %; Red Blood Cells 2.89 10^6/uL (4.0-5.20); White Blood Cell 8.3 10^3/uL (4.4-10.8)
[2022-11-23 05:35] LABS: Red Cell Distribution Width 26.7 % (11.8-14.3)
[2022-11-23 05:43] LABS: Albumin 3.3 g/dL (3.2-4.8); Alkaline Phosphatase 605 U/L (46-116); Aspartate Aminotransferase 54 U/L (13-40); BUN/Creatinine Ratio 12.6 (10.0-20.0); Bilirubin, Total 0.8 mg/dL (0.2-1.0); Blood Urea Nitrogen 61 mg/dL (9-23); Calcium 9.2 mg/dL (8.7-10.4); Chloride 98 mmol/L (98-107); Glucose 82 mg/dL (74-106); Potassium 5.1 mmol/L (3.5-5.1); Sodium 134 mmol/L (136-145)
[2022-11-23 05:44] LABS: Total Protein 6.8 g/dL (5.7-8.2)
[2022-11-23 06:09] LABS: Alanine Aminotransferase < 9 U/L (7-40)
[2022-11-23] MEDS: MIDODRINE HCL 10 MG TAB PO SCH ×3 (07:09→18:00)
[2022-11-23] MEDS: LEVOTHYROXINE SODIUM 50 MCG TAB PO SCH (07:10)
[2022-11-23 07:58] LABS: Platelet Estimate Adequate; Stomatocytes Moderate
[2022-11-23] MEDS: Nepro With Carbsteady ButterPecan 8oz Carton PO SCH ×3 (08:00→18:00)
[2022-11-23 08:42] LABS: Erythrocyte Sedimentation Rate 87 mm/hr (0-20)
[2022-11-23] MEDS: B-COMPLEX W/ C & FOLIC ACID(NEPHROVITE TAB) PO SCH (09:20)
[2022-11-23] MEDS ORDERED: FUROSEMIDE 100 MG/10ML VIAL IV ONE (11:45)
[2022-11-23] MEDS: ceFAZolin 1GM/50ML 50 ML IV SCH (15:00)
[2022-11-23] MEDS: ERTAPENEM SOD INJ 0.5 GM in SODIUM CHL 0.9% 50 ML IV SCH (16:00)
[2022-11-24] VITALS (7 sets, daily range): BP systolic 93–148; BP diastolic 26–55; PULSE 61–68; RESP 16–20; TEMP 97.7–97.9; O2SAT 96–100
[2022-11-24] MEDS: MIDODRINE HCL 10 MG TAB PO SCH ×2 (06:00→08:48)
[2022-11-24] MEDS ORDERED: SODIUM CHL 0.9% 1000 ML BAG XX ONE (07:00)
[2022-11-24] MEDS: LEVOTHYROXINE SODIUM 50 MCG TAB PO SCH (07:01)
[2022-11-24 07:10] LABS: Albumin 3.2 g/dL (3.2-4.8); Alkaline Phosphatase 625 U/L (46-116); Anion Gap 9.7 (5-15); Aspartate Aminotransferase 35 U/L (13-40); BUN/Creatinine Ratio 13.2 (10.0-20.0); Carbon Dioxide 26.3 mmol/L (20-30); Chloride 97 mmol/L (98-107); Glucose 88 mg/dL (74-106); Potassium 5.5 mmol/L (3.5-5.1); Sodium 133 mmol/L (136-145); Total Protein 6.7 g/dL (5.7-8.2)
[2022-11-24 07:14] LABS: Alanine Aminotransferase < 9 U/L (7-40); Blood Urea Nitrogen 73 mg/dL (9-23)
[2022-11-24 07:28] LABS: Bilirubin, Total 0.6 mg/dL (0.2-1.0)
[2022-11-24] MEDS: ALBUMIN 25% 100 ML IV PRN ×2 (07:50→08:52)
[2022-11-24] MEDS: Nepro With Carbsteady ButterPecan 8oz Carton PO SCH ×2 (08:00→12:00)
[2022-11-24] MEDS: B-COMPLEX W/ C & FOLIC ACID(NEPHROVITE TAB) PO SCH (11:08)
[2022-11-24] MEDS: ceFAZolin 1GM/50ML 50 ML IV SCH (15:00)
[2022-11-24 15:09] LABS: COVID19 ANTIGEN SOFIA FIA NEGATIVE (NEGATIVE)
[2022-11-24] MEDS ORDERED: EPOETIN ALFA-EPBX 4,000 UNIT/ML VIAL SC ONE (21:00)
== END 2022-11-24 15:30 | DRG 871 ==
LOC: EDBD 09:35 → ER 09:35 → TELE 14:06 → ICU WEST 14:54 → TELE-WESTW 11-18 17:15
PROVIDERS: ADMIT Nurse Practitioner Family; ATTEND Internal Medicine
PROC: 5A1D70Z Performance of Urinary Filtration, Intermittent, Less than 6 Hours Per Day (ICD-10-PCS; principal; 2022-11-04)
PROC: 5A1D70Z Performance of Urinary Filtration, Intermittent, Less than 6 Hours Per Day (ICD-10-PCS; 2022-11-05)
PROC: 0W9G3ZZ Drainage of Peritoneal Cavity, Percutaneous Approach (ICD-10-PCS; 2022-11-05)
PROC: 5A1D70Z Performance of Urinary Filtration, Intermittent, Less than 6 Hours Per Day (ICD-10-PCS; 2022-11-07)
PROC: 0R9K3ZX Drainage of Left Shoulder Joint, Percutaneous Approach, Diagnostic (ICD-10-PCS; 2022-11-07)
PROC: 5A1D70Z Performance of Urinary Filtration, Intermittent, Less than 6 Hours Per Day (ICD-10-PCS; 2022-11-08)
PROC: 5A1D70Z Performance of Urinary Filtration, Intermittent, Less than 6 Hours Per Day (ICD-10-PCS; 2022-11-09)
PROC: 0W9G3ZZ Drainage of Peritoneal Cavity, Percutaneous Approach (ICD-10-PCS; 2022-11-10)
PROC: 0R9K3ZX Drainage of Left Shoulder Joint, Percutaneous Approach, Diagnostic (ICD-10-PCS; 2022-11-10)
PROC: B246ZZ4 Ultrasonography of Right and Left Heart, Transesophageal (ICD-10-PCS; 2022-11-11)
PROC: 06HY33Z Insertion of Infusion Device into Lower Vein, Percutaneous Approach (ICD-10-PCS; 2022-11-11)
PROC: 5A1D70Z Performance of Urinary Filtration, Intermittent, Less than 6 Hours Per Day (ICD-10-PCS; 2022-11-12)
PROC: 5A1D70Z Performance of Urinary Filtration, Intermittent, Less than 6 Hours Per Day (ICD-10-PCS; 2022-11-14)
PROC: 5A1D70Z Performance of Urinary Filtration, Intermittent, Less than 6 Hours Per Day (ICD-10-PCS; 2022-11-17)
PROC: 05H933Z Insertion of Infusion Device into Right Brachial Vein, Percutaneous Approach (ICD-10-PCS; 2022-11-18)
PROC: B54MZZA Ultrasonography of Right Upper Extremity Veins, Guidance (ICD-10-PCS; 2022-11-18)
PROC: 0S9C3ZX Drainage of Right Knee Joint, Percutaneous Approach, Diagnostic (ICD-10-PCS; 2022-11-18)
PROC: 5A1D70Z Performance of Urinary Filtration, Intermittent, Less than 6 Hours Per Day (ICD-10-PCS; 2022-11-19)
PROC: 5A1D70Z Performance of Urinary Filtration, Intermittent, Less than 6 Hours Per Day (ICD-10-PCS; 2022-11-21)
PROC: 0W9G3ZZ Drainage of Peritoneal Cavity, Percutaneous Approach (ICD-10-PCS; 2022-11-21)
PROC: 5A1D70Z Performance of Urinary Filtration, Intermittent, Less than 6 Hours Per Day (ICD-10-PCS; 2022-11-24)
DX: A41.01 Sepsis due to Methicillin susceptible Staphylococcus aureus (principal); G93.41 Metabolic encephalopathy; J96.01 Acute respiratory failure with hypoxia; N18.6 End stage renal disease; I21.4 Non-ST elevation (NSTEMI) myocardial infarction; K76.7 Hepatorenal syndrome; J18.9 Pneumonia, unspecified organism; K72.00 Acute and subacute hepatic failure without coma; R65.21 Severe sepsis with septic shock; E46 Unspecified protein-calorie malnutrition; I31.39 Other pericardial effusion (noninflammatory); I48.20 Chronic atrial fibrillation, unspecified; R18.8 Other ascites; I50.30 Unspecified diastolic (congestive) heart failure; M00.9 Pyogenic arthritis, unspecified; I13.2 Hypertensive heart and chronic kidney disease with heart failure and with stage 5 chronic kidney disease, or end stage renal disease; Z20.822 Contact with and (suspected) exposure to COVID-19; E66.01 Morbid (severe) obesity due to excess calories; E78.5 Hyperlipidemia, unspecified; E88.09 Other disorders of plasma-protein metabolism, not elsewhere classified; F17.210 Nicotine dependence, cigarettes, uncomplicated; I27.20 Pulmonary hypertension, unspecified; K74.69 Other cirrhosis of liver; I25.10 Atherosclerotic heart disease of native coronary artery without angina pectoris; J43.9 Emphysema, unspecified; K62.3 Rectal prolapse; M06.9 Rheumatoid arthritis, unspecified; E03.9 Hypothyroidism, unspecified; Z88.2 Allergy status to sulfonamides; Z68.33 Body mass index [BMI] 33.0-33.9, adult; Z91.199 Patient's noncompliance with other medical treatment and regimen due to unspecified reason; Z82.49 Family history of ischemic heart disease and other diseases of the circulatory system; Z99.2 Dependence on renal dialysis
CPT/HCPCS: 36415; 36600; 71045; 71260; 71275; 73200; 73221; 73706; 74177; 76705; 76881; 76937; 76942; 78831; 80048; 80053; 80069; 80074; 80202; 82140; 82805; 82962; 83605; 83690; 83735; 83880; 84100; 84132; 84443; 84484; 85007; 85025; 85027; 85379; 85610; 85652; 85730; 86850; 86900; 86901; 87040; 87070; 87077; 87081; 87147; 87186; 87205; 87426; 89051; 90935; 93005; 93306; 93312; 93970; 93971; 94640; 96361; 96365; 96367; 97110; 97116; 97163; 97530; 99152; 99153; 99291; 99292; C1769; G0378; J0171; J0690; J1265; J1335; J1642; J1815; J1956; J2250; J2543; J3490; J7060; P9047; Q9967